=== PATIENT | male | born 1985 | race Caucasian/White ===

== ENCOUNTER 2018-12-22 23:47 | Emergency (ER) | payer OTHER, SELFPAY ==
[2018-12-22 23:48] VITALS: BP 147/77; PULSE 98; RESP 18; TEMP 36.7; O2SAT 96; BMI 39.3
--- NOTE | 2018-12-23 00:11 | ED.DCSUM_ITS ---
History of Present Illness Chief Complaint: Head Injury Informant: Patient Narrative: Patient stated that he had to come in for company evaluation after he was working on a vela and a piece of metal swung and hit him in the left forehead. He was dazed for a second. He did not lose consciousness. He said no other symptoms afterward. He has a mild headache. Happened just prior to coming in. He denies any other symptoms. Current severity is mild. Is in normal. No nausea or vomiting. Past Medical History - Allergies and Home Meds Allergies/Adverse Reactions: Allergies No Known Allergies Allergy (Verified 12/22/18 23:51) Primary Care Physician: Care Physician,No Primary [Primary Care Provider] - Prior records reviewed: Yes Surgical History: noncontributory Lives: Spouse/ Significant Other Smoking Status: Never smoker Alcohol: None Drugs: None Review of Systems General: Denies: Chills, Fever, Sweats Eyes: Denies: Visual changes - bilaterally, Diplopia ENT: Denies: Rhinorrhea, Sore throat Cardiovascular: Denies: Chest pain, Palpitations Respiratory: Denies: Dyspnea, Cough, Dyspnea on exertion Gastrointestinal: Denies: Abdominal pain, Nausea, Vomiting, Diarrhea, Melena, Hematochezia Genitourinary: Denies: Dysuria, Hematuria, Frequency Musculoskeletal: Denies: Back pain, Extremity Pain Skin: Denies: Rash, Wounds Neurological: Reports: Headache. Denies: Weakness, Numbness Physical Exam Vital Signs/Narrative: Vital Signs Temp Pulse Resp BP Pulse Ox 12/22/18 23:48 98.0 F 98 18 147/77 H 96 General: Well nourished, Well developed, No Acute Distress Head: Normocephalic, Atraumatic Eyes: Perrl, EOMI ENT: Moist mucous membranes, No rhinorrhea Neck: Supple, Nontender Cardiovascular: Regular rate, Regular rhythm, No murmurs Respiratory: No distress, CTA bilaterally, Chest nontender Abdomen: Soft, Nontender, Nondistended, Normal bowel sounds Back: Nontender, Normal Inspection Extremities: Nontender, No edema Skin: Normal color, No rash Neurological: Alert, Oriented x3, Cranial nerves II-XII grossly intact, Normal Strength, Normal Sensation Psychological: Normal affect, Normal Mood Diagnostic/Tx/Re-eval - Medical Decision Making Patient resting comfortably. Stated he came in because of his company policy. I do not think he needs a CT of his head. His head exam is normal. No scalp contusion bony step-off or deformity. He will follow-up as an outpatient. Did not want anything for discomfort. I think he just has a slight head contusion ED Disposition - Plan for ED Patient: Disposition: [facility] Diagnosis: Contusion Instructions: ED Contusion Scalp Referrals: [facility] [GROUP OF PHYSICIANS] -
[2018-12-23 00:45] VITALS: BP 140/60; PULSE 78; RESP 18; O2SAT 96
== END 2018-12-23 00:46 | disposition home or self-care (01) ==
PROVIDERS: Emergency Provider Emergency Medicine
DX: S00.83XA Contusion of other part of head, initial encounter (principal); W22.8XXA Striking against or struck by other objects, initial encounter; Y93.89 Activity, other specified; Y92.9 Unspecified place or not applicable; Y99.0 Civilian activity done for income or pay
CPT/HCPCS: 99282

== ENCOUNTER 2019-09-24 23:12 | Emergency (ER) | payer OTHER, SELFPAY ==
[2019-09-24 23:13] VITALS: BP 141/97; PULSE 116; RESP 16; TEMP 36.1; O2SAT 98; BMI 39.7
--- NOTE | 2019-09-24 23:47 | RAD_ITS ---
STUDY: X-RAY - LEFT HAND REASON FOR EXAM: Male, 33 years old. HIT WITH HAMMER AT WORK -- C/O 2ND and amp; 3RD MCP JOINTS AND INDEX AND MIDDLE FINGERS OF LT HAND TECHNIQUE: 3 view(s) of the hand. COMPARISON: None. FINDINGS: Normal radiocarpal articulation. Normal distal radioulnar joint. Normal visualized carpal bones. Normal carpal articulations Normal carpometacarpal articulation of the thumb. Normal second through fifth carpometacarpal joints. Normal metacarpi. Normal metacarpophalangeal joint of the thumb. Normal interphalangeal joint of the thumb. Normal proximal and distal phalanges of the thumb. Normal metacarpophalangeal joints of the second through fifth fingers. Normal proximal and distal interphalangeal joints of the second through fifth fingers. Normal phalanges of the second through fifth fingers. The soft tissue structures are unremarkable. RAD/Hand Min 3 Views IMPRESSION: Normal x-ray examination of the hand. Electronically Signed: Magnolia Banuelos MD at 0:24 EST , Service support ,
--- NOTE | 2019-09-24 23:48 | ED.DCSUM_ITS ---
- ER Visit Summary Date of Service: 09/24/19 Chief Complaint: Left hand injury History of Present Illness: The patient is a 33 M who presents with a left hand injury that occurred tonight while at work. Patient states his coworker hit his hand with a hammer accidentally. Patient states the pain is over the proximal phalanx of the left index finger. Patient is right-hand dominant. Patient states the pain was sharp initially but now is aching. Patient states he initially had some paresthesias in his index and long fingers but states this has resolved. Patient states the pain is worse with complete flexion of the digits. Patient states the pain is also worse when he pushes on the area. Patient states nothing seems to help with the pain. Physical Examination: All signs are stable. Patient is afebrile. Patient is in no acute distress. Musculoskeletal exam reveals tenderness, edema, and mild erythema over the proximal phalanx of the left index finger. There is no bony crepitance or step-off. Range of motion was limited in all motions of the MP, PIP, and DIP joints of the left index finger secondary to pain. There is also some mild tenderness over the third distal metacarpal area. There is no edema or ecchymosis noted. There is no bony crepitance or step-off. Sensation was intact to light touch in all digits. Capillary refill was less than 2 seconds in all digits. Radial pulses are equal bilaterally. Test Results: X-rays of the left hand were obtained. There is no acute fracture. These were interpreted by the radiologist and myself. Emergency Department Course and Treatment: Patient was advised of his x-ray findings. Patient was instructed to ice and elevate the left hand. Patient was given restrictions for work. Patient was instructed to follow-up with his primary care physician or corporate care in 5 to 7 days. Patient understood and was agreeable with the plan. All questions were answered. Disposition: Discharge home Impression: 1. Acute contusion left hand This note was generated with [employer] dictation software. It may contain incorrect words, spelling, and punctuation that were not noted in review of the chart pr ior to signing ED Disposition - Plan for ED Patient: Disposition: Home or Assisted Living Diagnosis: Contusion of left hand Instructions: CONTUSION, Hand Referrals: Care Physician,No Primary [Primary Care Provider] - [facility] [GROUP OF PHYSICIANS] - 5-7 Days
[2019-09-25 00:43] VITALS: PULSE 88; RESP 18
== END 2019-09-25 00:43 | disposition home or self-care (01) ==
PROVIDERS: Emergency Provider Emergency Medicine
DX: S60.022A Contusion of left index finger without damage to nail, initial encounter (principal); W20.8XXA Other cause of strike by thrown, projected or falling object, initial encounter; Y93.89 Activity, other specified; Y92.89 Other specified places as the place of occurrence of the external cause; Y99.0 Civilian activity done for income or pay
CPT/HCPCS: 73130; 99282

== ENCOUNTER 2021-09-09 23:21 | Emergency (ER) | payer BC, SELFPAY ==
[2021-09-09 23:22] VITALS: BP 142/91; PULSE 104; RESP 16; TEMP 36.7; O2SAT 98; BMI 40.4
--- NOTE | 2021-09-10 00:04 | CT_ITS ---
EXAM: CT ABDOMEN AND PELVIS WITHOUT INTRAVENOUS CONTRAST : 1985 CLINICAL INDICATION: left flank pain TECHNIQUE: Helically acquired images were obtained of the abdomen and pelvis without intravenous contrast. This CT exam was performed using one or more of the following dose reduction techniques: automated exposure control, adjustment of the mA and/or kV according to patient size, and/or use of iterative reconstruction technique. This report was created using [employer] report generation technology. COMPARISON: None. FINDINGS: LOWER THORAX: Unremarkable. Lung bases are clear. No cardiomegaly. No significant pericardial effusion. ABDOMEN: LIVER: Hepatomegaly with fatty infiltration. GALLBLADDER AND BILE DUCTS: Unremarkable. No calcified gallstones. No gallbladder distention or wall edema. No intra- or extrahepatic biliary ductal dilation. PANCREAS: Unremarkable. No focal cystic mass. SPLEEN: Unremarkable. Normal size without focal cystic or solid mass. ADRENALS: Unremarkable. No nodules. KIDNEYS AND URETERS: No urinary stone or renal obstruction. Normal renal size and position. STOMACH AND BOWEL: Unremarkable. No stomach or bowel distention. No focal inflammatory change. PELVIS: APPENDIX: The appendix is normal. BLADDER: Unremarkable. REPRODUCTIVE: Unremarkable as visualized. No mass. ABDOMEN and PELVIS: INTRAPERITONEAL SPACE: Unremarkable. No ascites or other fluid collection. No free air. BONES/JOINTS: Unremarkable. No suspicious lytic or blastic abnormality. SOFT TISSUES: Unremarkable. No discrete abdominal or pelvic wall hernia. VASCULATURE: Multiple pelvic vein phleboliths. Abdominal aorta is non-dilated. LYMPH NODES: Unremarkable. No enlarged lymph nodes. CT/Abdomen/Pelvis without Cont IMPRESSION: No acute findings in the abdomen or pelvis. Hepatomegaly with fatty infiltration of the liver. Individualized dose optimization techniques were used for this CT. at 0103 Reported and signed by: Dale Drake MD Electronically Signed: Dale Drake MD at 1:02 EST ,
[2021-09-10 00:30] LABS: Absolute Lymphocyte Count 2.87 X10^3/uL (0.83-4.51); Absolute Neutrophil Count 5.1 X10^3/uL (2.0-7.7); Basophil# 0.05 X10^3/uL; Basophil% 0.6 % (0-1); Eosinophil# 0.25 X10^3/uL; Eosinophils% 2.9 % (0-5); Hematocrit 45.7 % (40-54); Hemoglobin 15.1 g/dL (13.0-16.5); Lymphocyte # 2.87 X10^3/ul (0.83-4.51); Lymphocyte % 32.8 % (19-41); Mean Corpuscular Hgb 26.7 pg (27.0-32.0); Mean Corpuscular Volume 80.9 fL (80-94); Mean Platelet Vol. 10.3 fl (6.2-12.0); Monocyte# 0.48 X10^3/uL; Monocyte% 5.5 % (0-10); NRBC Flagged by Analyzer 0 % (0-5); Neutrophil # 5.07 X10^3/uL (2.7-7.7); Platelet Count 270 K/mm3 (150-450); RBC Distribution Width CV 12.7 % (11.6-14.6); RBC Distribution Width SD 36.8 fl (35.1-43.9); Red Blood Count 5.65 M/mm3 (4.6-6.2); White Blood Count 8.7 K/mm3 (4.4-11.0)
[2021-09-10] MEDS: Ketorolac 30 MG/ML Syringe IV (00:31)
[2021-09-10] MEDS: 0.9% Normal Saline 1,000 ML 999 ML IV (00:31)
[2021-09-10 00:46] LABS: Anion Gap 7 (5-15); BUN 14 mg/dL (7-18); BUN/Creat Ratio 16.8 RATIO (10-20); Calcium,Total 9.3 mg/dL (8.5-10.1); Chloride 103 mmol/L (98-107); Creatinine, Serum 0.83 mg/dL (0.70-1.30); EST Glomerular Filtration Rate 112 mL/min (>60); Est Glom Filt Rate - Afr Amer 135 mL/min (>60); Estimated Creatinine Clearance 133.56 ml/min; Glucose 308 mg/dL (74-106); Potassium 3.9 mmol/L (3.5-5.1); Sodium Level 137 mmol/L (136-145)
[2021-09-10 01:12] LABS: Bacteria 0 SEEN /hpf (None Seen); Red Blood Cells-Urine 0 SEEN /hpf (0-5); Squamous Epithelial Cells - UA 0 SEEN /hpf (0-5); White Blood Cells 0 SEEN /hpf (0-5)
[2021-09-10 01:13] LABS: Color, Urine Yellow (Yellow); Glucose, Dipstick 1000 mg/dl (Normal); Ketone-Dipstick Negative (Negative); Leukocyte Esterase-Dipstick Negative /ul (Negative); Nitrite-Dipstick Negative (Negative); Occult Blood-Urine Negative /ul (Negative); Protein-Dipstick 30 mg/dl (Negative); Urine Bilirubin Dipstick Negative (Negative); Urine Clarity Clear (Clear); Urine Urobilinogen 4 mg/dl (Normal)
[2021-09-10 01:37] LABS: Mucous, Urine RARE /hpf (<or=2+)
--- NOTE | 2021-09-10 01:54 | EDS_ITS ---
HPI History of Present Illness Chief Complaint: Abd Pain Narrative Narrative: Patient is a 35-year-old male who states he has noticed some intermittent left-sided abdominal pain for the past 3 to 5 days. He denies any direct injury but states he lifts heavy objects at work daily and did slip and fall about 7 days ago. He states he landed on his right side however and his pain is on his left. He denies any fevers chills nausea vomiting diarrhea or dysuria. He denies any hematuria. He denies any back pain or loss of bowel or bladder control. He states he was at work this evening and pain was not improving and secondary to this he presents for evaluation [facility] Home Medications NK 12/22/18 [History Last Taken Unknown] Allergy/AdvReac Type Severity Reaction Status Date / Time No Known Allergies Allergy Verified 09/09/21 23:24 Surgical History H/O hernia repair Social History Smoking Status: Never smoker ROS ROS ED Constitutional Constitutional ED: Denies chills or fever(s) ENT ENT ED: Denies sore throat Cardiovascular Cardiovascular: Denies chest pain Respiratory/Chest Respiratory/Chest: Denies cough or dyspnea Gastrointestinal Gastrointestinal: Reports abdominal pain; Denies diarrhea, nausea or vomiting Genitourinary Genitourinary ED: Denies dysuria or hematuria Musculoskeletal Musculoskeletal: Denies back pain or myalgias Integumentary Denies rash Neurologic Neurologic: Denies headache(s) Hematologic/Lymphatic Hematologic/Lymphatic: Denies easy bleeding or easy bruising EXAM Physical Exam Const Vital Signs: 09/09/21 23:22 09/10/21 02:07 Temperature 98.1 F Temperature Source Temporal Pulse Rate 104 H 86 Respiratory Rate 16 16 Blood Pressure 142/91 H 135/80 H Blood Pressure Mean 108 Pulse Ox 98 99 Oxygen Delivery Method Room Air Positive well nourished, well developed and obese General Appearance ED: well developed Nutritional Appearance: obese HEENT Reports moist mucous membranes Eyes PERRL and EOMs intact bilaterally Neck supple Resp normal respiratory effort and clear to auscultation bilaterally Cardio regular rate and regular rhythm Rate: other Other Details: Radial pulses are plus 2 out of 4 bilaterally are equal and symmetric GI non-distended GI Narrative: Abdomen is obese soft and nondistended with normoactive bowel sounds. There is mild pain on palpation in the left lower quadrant/inguinal region without voluntary guarding or rigidity. No obvious abdominal wall defect to suggest hernia. No pulsatile mass Auscultation: normoactive bowel sounds Palpation: soft Narrative: Normal circumcised male without blood or discharge from urethral meatus. No testicular masses palpated no pain with palpation of the scrotum. No obvious hernia palpated. No secondary skin changes to suggest Karina's gangrene Back/Spine no CVA tenderness Extremity normal to inspection Neuro oriented x3 and CN's II-XII intact bilaterally Sensorium / Orientation: alert Motor Exam: strength 5/5 throughout Psych mental status grossly normal Skin no rashes or lesions noted MDM MDM MDM Narrative Medical decision making narrative: Patient presented to the ER with history and exam concerning for hernia versus possible kidney stone. I cannot palpate an obvious hernia however so I did elect to perform a noncontrast CT scan and basic blood work for possible stone. Patient's blood sugar is elevated but he has no signs of DKA or acute kidney injury. Urine also shows no blood or signs of infection and CT scan reveals no acute abdominal pathology. At this time patient is resting comfortably and has had resolution of his pain; his abdomen remains soft and nonsurgical. I cannot palpate an obvious hernia but as his CAT scan is normal and his urine has no blood I do feel that his recurrent pain is most likely from this but as he has no signs of incarceration there is no need for further work-up and he can be discharged home on an outpatient basis. He also was advised of his elevated blood sugar and urine glucose value indicating he is most likely diabetic and that he will need to follow-up with a family doctor to discuss fasting blood work as well as a hemoglobin A1c Lab Data Attestation: I reviewed the patient's lab results. Labs: Laboratory Results - last 24 hr 09/10/21 09/10/21 09/10/21 00:25 00:25 01:05 WBC 8.7 RBC 5.65 Hgb 15.1 Hct 45.7 MCV 80.9 MCH 26.7 L MCHC 33.0 RDW Std Deviation 36.8 RDW Coeff of Jay 12.7 Plt Count 270 MPV 10.3 Immature Gran % (Auto) 0.200 Neut % (Auto) 58.0 Lymph % (Auto) 32.8 [place] % (Auto) 5.5 Eos % (Auto) 2.9 Baso % (Auto) 0.6 Absolute Neuts (auto) 5.1 Absolute Lymphs (auto) 2.87 Nucleated RBC % 0 Sodium 137 Potassium 3.9 Chloride 103 Carbon Dioxide 27.0 Anion Gap 7 BUN 14 Creatinine 0.83 Estim Creat Clear Calc 133.56 Est GFR (MDRD) Af Amer 135 Est GFR (MDRD) Non-Af 112 BUN/Creatinine Ratio 16.8 Glucose 308 H Calcium 9.3 Urine Color Yellow Urine Clarity Clear Urine pH 5.0 Ur Specific Ulmer 1.020 Urine Protein 30 H Urine Glucose (UA) 1000 H Urine Ketones Negative Urine Occult Blood Negative Urine Nitrite Negative Urine Bilirubin Negative Urine Urobilinogen 4 H Ur Leukocyte Esterase Negative Urine RBC 0 SEEN Urine WBC 0 SEEN Ur Squamous Epith Cells 0 SEEN Urine Bacteria 0 SEEN Urine Mucus RARE Radiography Diagnostic Testing: Clinical Impression(s) from Imaging Studies Abdomen/Pelvis CT 09/10/21 00:04 IMPRESSION: No acute findings in the abdomen or pelvis. Hepatomegaly with fatty infiltration of the liver. Individualized dose optimization techniques were used for this CT. at 0103 Reported and signed by: Dale Drake MD Electronically Signed: Dale Drake MD at 1:02 EST , Discharge Plan Triage Chief Complaint: Abd Pain ED Provider: Haile Renee Dx/Rx/DC Orders Clinical Impression: Abdominal hernia, Hyperglycemia Instructions: What Is a Hernia?, ED Hernia (Adult) Prescriptions: No Action NK RF: 0 Stand Alone Forms: ED Work / School Excuse Primary Care Provider: Care Physician,No Primary Referrals: Edgard Gastelum MD [STAFF PHYSICIAN] - 3-5 Days Care Physician,No Primary [Primary Care Provider] - Activity Restrictions/Additional Instructions: Please follow-up with the family doctor provided in order to further evaluate you for diabetes and possible referral to a general surgeon based on your abdominal pain with concern for hernia Disposition Disposition: Home, Self Care Discharge Date/Time: 09/10/21 02:07
[2021-09-10 02:07] VITALS: BP 135/80; PULSE 86; RESP 16; O2SAT 99
== END 2021-09-10 02:07 | disposition home or self-care (01) ==
PROVIDERS: Emergency Provider Emergency Medicine; Visit Provider Emergency Medicine
DX: K46.9 Unspecified abdominal hernia without obstruction or gangrene (principal); R73.9 Hyperglycemia, unspecified
CPT/HCPCS: 74176; 80048; 81001; 85025; 96361; 96374; 99284; J7030

== ENCOUNTER 2025-03-13 12:14 | Inpatient (IN) | payer BC, SELFPAY ==
[2025-03-13 12:15] VITALS: BP 135/72; PULSE 91; RESP 14; TEMP 35.6; O2SAT 97; BMI 37.8
--- NOTE | 2025-03-13 12:29 | EKG12_ITS ---
Test Reason : CP Blood Pressure : */* mmHG Vent. Rate : 89 BPM Atrial Rate : 89 BPM P-R Int : 138 ms QRS Dur : 72 ms QT Int : 362 ms P-R-T Axes : 34 11 111 degrees QTcB Int : 440 ms Normal sinus rhythm Abnormal QRS-T angle, consider primary T wave abnormality Abnormal ECG Confirmed by CATHY STOVER, UBALDO ([id number]), assignment desk editor MERCY PATEL ([id number]) on 03/14/2025 8:35:54 AM Referred By: RU/AR Confirmed By: UBALDO MORGAN MD
--- NOTE | 2025-03-13 12:29 | RAD_ITS ---
PROCEDURE: CHEST 1 VIEW (PORTABLE) N/A REASON FOR EXAM: CHEST PAIN TECHNIQUE: Frontal view of the chest. COMPARISON: None FINDINGS: Heart size and mediastinal configuration are within normal limits. There is no focal infiltrate or consolidation. There is no pneumothorax or effusion. There is no acute bony abnormality. There is no visible atherosclerosis. RAD/Chest 1 View (Portable) IMPRESSION: No acute process is identified in the chest. Reading Location: [facility]
--- NOTE | 2025-03-13 12:30 | ED.VIS.CHEST ---
HPI History of Present Illness Chief Complaint: Chest Pain Narrative Narrative: 39-year-old male who denies significant past medical history presents with intermittent chest pain that he has had for the last week. He states it can last for up to a few hours at a time. He denies any nausea or vomiting associated with this, no shortness of breath but states that he has been diaphoretic. However, he works as a arc welder apprentice, and attributed the high heat to that. This morning, at around 9 AM till around 11 AM he had chest pressure. He went to urgent care who advised him to report to the emergency department. As he was driving here from [place], he states his symptoms improved. He has also noticed that is usually when he is out, during the week, but not really experiencing chest pressure when he is at home on the weekends. He denies any leg swelling. He does state that his uncle may have had early coronary artery disease in his 30s. No exacerbating or alleviating factors otherwise. PFSH PFS Home Medications ?Medication ?Instructions ?Recorded ?Last Taken ?Type BLUE CHEW 03/13/25 Unknown History diphenhydramine HCl 25 mg capsule 25 mg PO DAILY PRN sleep 03/13/25 Unknown History (ZzzQuil) Allergy/AdvReac Type Severity Reaction Status Date / Time No Known Allergies Allergy Verified 03/13/25 12:15 Surgical History H/O hernia repair Social History Smoking Status: Never smoker ROS ROS ED ROS Narrative Review of systems positive for hours of chest pain intermittently over the last week. Started at 9:00 today and lasted for approximately 2 hours. No leg swelling. No nausea or vomiting, no fevers or chills, no cough, no shortness of breath. Positive sweating. Positive family history. EXAM Physical Exam Narrative Exam Narrative: Afebrile. Vital signs noted. Nontoxic-appearing. Cardiovascular examination reveals regular rate and rhythm. Lungs are clear to auscultation bilaterally. Abdomen is soft and nontender with normal active bowel sounds. Neurological examination nonfocal, nonlateralizing. No pedal edema. 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 Const Vital Signs: 03/13/25 12:15 03/13/25 12:46 03/13/25 12:46 Temperature 96.1 F L Temperature Source Temporal Pulse Rate 91 Respiratory Rate 14 Respiratory Effort Normal Non-Labored Blood Pressure 135/72 H Blood Pressure Mean 93 Pulse Ox 97 Oxygen Delivery Method Room Air Room Air 03/13/25 14:15 Temperature 98.2 F Temperature Source Pulse Rate 89 Respiratory Rate 20 H Respiratory Effort Blood Pressure 135/83 H Blood Pressure Mean 100 Pulse Ox 98 Oxygen Delivery Method MDM MDM MDM Narrative Medical decision making narrative: The differential diagnosis includes but not limited to ACS versus pulmonary embolism versus pneumonia versus pneumothorax. History and physical does not support aortic dissection, he is not having any back pain. Regarding the psoriatic patches on his legs, he states that he does not see a primary care provider and they do not really bother him and that they have been present for years. He was advised to follow-up with her primary care provider regarding this. For his chest pain, comprehensive workup was pursued. EKG was obtained and interpreted by myself independently as normal sinus rhythm at 89 bpm without ectopy or acute ST changes. No STEMI. I will obtain a D-dimer to help rule out pulmonary embolism. Chest x-ray interpreted by myself independently shows no evidence of pneumonia or pneumothorax. I reviewed the radiology report which confirms my independent interpretation. I reviewed his laboratory work and he has a normal white count of 7.8 with hemoglobin normal at 14.0, hematocrit 41.4, platelet count 264. BMP is grossly unremarkable except for glucose of 199 with a normal anion gap of 12. BUN normal at 14 with creatinine 0.72. Initially, his D-dimer returned and is elevated just above normal at 0.50. I ordered CTA with results pending. His initial high-sensitivity troponin returned at 76. I discussed the patient with Dr. Rico who agrees with heparin drip and admission to the hospitalist. He will be started on a heparin drip, and a PTT ordered. He will be treated for pulmonary embolism should it be positive, but given his elevated troponin as well, I feel he needs to be admitted for NSTEMI. He was told of the risk of intracranial and GI tract/system bleeding and spontaneous hemorrhage as well as increased bleeding with any wounds, and acknowledges an understanding. Risks and benefits explained as well. I reviewed the radiology report of the CTA of the chest and there is no evidence of pulmonary embolism. I then discussed the patient with Dr. Markell Almanzar for admission to the PCU. Patient is in stable condition. History & Record Review Discussion w/independent historian: Patient Additional record(s) reviewed:: Prior ED visit (Noncontributory to current chief complaint of chest pressure and pain) Lab Data Attestation: I reviewed the patient's lab results. Labs: Laboratory Results - last 24 hr 03/13/25 12:45 WBC 7.8 RBC 5.00 Hgb 14.0 Hct 41.4 MCV 82.8 MCH 28.0 MCHC 33.8 RDW Std Deviation 38.9 RDW Coeff of Jay 13.0 Plt Count 264 MPV 10.2 Immature Gran % (Auto) 0.300 Neut % (Auto) 66.6 Lymph % (Auto) 25.3 [place] % (Auto) 5.4 Eos % (Auto) 1.8 Baso % (Auto) 0.6 Absolute Neuts (auto) 5.2 Absolute Lymphs (auto) 1.97 Nucleated RBC % 0 PT 13.0 INR 1.0 APTT 28.4 D-Dimer Quant (PE/DVT) 0.50 H Sodium 141 Potassium 3.8 Chloride 103 Carbon Dioxide 25.3 Anion Gap 12 BUN 14 Creatinine 0.72 Estim Creat Clear Calc 191.01 Est GFR (MDRD) Non-Af 120 BUN/Creatinine Ratio 19.5 Glucose 199 H Calcium 9.6 Troponin T High Sens 76 H* Radiography Chest X-Ray - ED: 1 View, Read by ED Physician, Read by Radiologist and No Acute Disease Diagnostic Testing: Clinical Impression(s) from Imaging Studies Chest X-Ray 03/13/25 12:29 IMPRESSION: No acute process is identified in the chest. Reading [facility] Chest CTA 03/13/25 13:20 IMPRESSION: NORMAL CHEST CTA. NO EVIDENCE OF ACUTE PULMONARY EMBOLISM. Reading Location: [id number] Management Discussion w/another healthcare provider: Hospitalist (Dr. Almanzar) and Chef French (Cardiology, Dr. Rico) Discharge Plan Triage Chief Complaint: Chest Pain ED Provider: Markell Brock Dx/Rx/DC Orders Clinical Impression: Chest pain, Non-ST elevation TN (NSTEMI), Sweating Prescriptions: No Action BLUE CHEW Rx Instructions: PT STATES HE HAS A SCRIPT FOR BLUE CHEW AND IT'S LIKE A VIAGRA GUMMY diphenhydramine HCl [ZzzQuil] 25 mg capsule 25 mg PO DAILY PRN (Reason: sleep) Primary Care Provider: Care Physician,No Primary Referrals: Care Physician,No Primary [Primary Care Provider] - Print Language: Guinean
[2025-03-13] MEDS: 0.9% Normal Saline (1000mL) 1,000 ML 250 ML IV (12:57)
[2025-03-13 13:08] LABS: Hematocrit 41.4 % (40-54); Hemoglobin 14.0 g/dL (13.0-16.5); Immature Granulocytes Count 0.020 X10^3/uL (0.0-0.0); Mean Corp Hgb Conc 33.8 g/dL (32-36); Mean Corpuscular Volume 82.8 fL (80-94); Mean Platelet Vol. 10.2 fl (6.2-12.0); NRBC Flagged by Analyzer 0 % (0-5); Platelet Count 264 K/mm3 (150-450); RBC Distribution Width CV 13.0 % (11.6-14.6); RBC Distribution Width SD 38.9 fl (35.1-43.9); Red Blood Count 5.00 M/mm3 (4.6-6.2); White Blood Count 7.8 K/mm3 (4.4-11.0)
[2025-03-13 13:12] LABS: D-Dimer Quantitative (DVT/PE) 0.50 FEU/ug/m (0.27-0.49)
--- NOTE | 2025-03-13 13:20 | CT_ITS ---
PROCEDURE: CTA CHEST W/WO CONTRAST 03/13/2025 REASON FOR EXAM: ELEVATED D-DIMER TECHNIQUE: CTA CHEST W/WO CONTRAST Multiplanar Sagittal and Coronal images were obtained. CONTRAST: Isovue 3 7 VOLUME: 100 mL One or more dose reduction techniques were used (e.g., Automated exposure control, adjustment of the mA and/or kV according to patient size, use of iterative reconstruction technique). RADIATION DOSE SUMMARY: CTDlvol: 17 mGy DLP: 583.78 mGycm COMPARISON: Prior chest radiograph done earlier in the day. FINDINGS: Hardware: None Lymph nodes: No significant lymph nodes are seen. Heart: Unremarkable. No coronary artery calcification. Thoracic Aorta: No thoracic aortic aneurysm or dissection. Pulmonary Vessels: No pulmonary embolism. Lungs and Airways: Unremarkable Pleura: No pleural effusion. Upper Abdomen: Unremarkable Bones: Unremarkable CT/CTA Chest W/WO Contrast IMPRESSION: NORMAL CHEST CTA. NO EVIDENCE OF ACUTE PULMONARY EMBOLISM. Reading Location: [id number]
[2025-03-13 13:34] LABS: Anion Gap 12 (5-15); BUN 14 mg/dL (4-19); BUN/Creat Ratio 19.5 RATIO (10-20); Calcium,Total 9.6 mg/dL (7.6-11.0); Carbon Dioxide 25.3 mmol/L (21.0-32.0); Chloride 103 mmol/L (98-108); Estimated Creatinine Clearance 191.01 ml/min (50-250); Glucose 199 mg/dL (70-99); Potassium 3.8 mmol/L (3.3-5.1); Troponin T High Sensitivity 76 ng/L (<=22)
[2025-03-13 14:15] VITALS: BP 135/83; PULSE 89; RESP 20; TEMP 36.8; O2SAT 98
[2025-03-13 14:15] LABS: Prothrombin Time (Protime)PT. 13.0 SECONDS (11.7-14.9)
[2025-03-13 14:16] LABS: Partial Thromboplast Time 28.4 Seconds (24.1-36.2)
[2025-03-13] MEDS: HEPARIN/D5w 25,000 UNITS 25,000 UNITS/250 ML IV.SOLN. 13.8 UNITS CONT INF (14:23)
[2025-03-13] MEDS: Heparin Injection (Vial) 5,000 UNIT/ML VIAL 4000 UNIT IV (14:35)
--- NOTE | 2025-03-13 14:38 | PCM.HP.STD ---
HPI - General General Date of Admission: 03/13/25 Date of Service: 03/13/25 Chief Complaint: Chest pain HPI Narrative MINDI SHARIF, is a 39 M who presented to [facility] ED on 03/13/2025 with chest pain. Patient lives at home with his and child. Has no significant past medical history. However, his maternal grandmother in her late 30s of heart attack and his uncle had heart disease in his 30s as well. 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 He initially developed chest discomfort last Wednesday but noted this was while he was working outside in the heat, so he did not think much of it. However, he developed worsening chest discomfort now over the past few days that has not improved as much on its own so he came in for further evaluation. In the ED he was mildly hypertensive to the 130 systolic but otherwise in normal sinus rhythm and stable on room air at rest. CBC and BMP were benign. EKG with normal sinus rhythm and no ST changes noted. However, initial troponin level 76. D-dimer was mildly elevated so CTA chest obtained that showed no PE and was otherwise normal. Case was discussed with cardiology who recommended initiating heparin drip for suspected NSTEMI. Hospitalist was then contacted for admission. I saw the patient at bedside in the ED, was present. Patient was very pleasant and was sitting back comfortably in bed, conversing normally, in no acute distress. He was somewhat anxious appearing due to the current situation. Noted that his chest pain did improve after the aspirin and initiation of heparin drip. Blood sugar was elevated at 199 on BMP and was previously elevated at 308 on a BMP in 2021. He denies history of diabetes but does note he has not had lab workup for this in many years. Denies any history of high cholesterol or hypertension that he knows of. Denies tobacco use. Very rare alcohol use. Minimal caffeine use. Denies any recent illnesses. Denies any leg swelling. No other acute concerns currently. Will be admitted for further management. PENDING SALE TO [facility] Home Medications ?Medication ?Instructions ?Recorded ?Last Taken ?Type BLUE CHEW 03/13/25 Unknown History diphenhydramine HCl 25 mg capsule 25 mg PO DAILY PRN sleep 03/13/25 Unknown History (Cristail) Allergy/AdvReac Type Severity Reaction Status Date / Time No Known Allergies Allergy Verified 03/13/25 12:15 Surgical History H/O hernia repair Social History Smoking Status: Never smoker ROS Constitutional Constitutional: Denies chills, fatigue, fever(s) or weakness Eyes Eyes: Denies change in vision Cardiovascular Cardiovascular: Reports chest pain; Denies dyspnea on exertion, edema, lightheadedness or palpitations Respiratory/Chest Respiratory/Chest: Denies cough, shortness of breath at rest, shortness of breath with exertion or wheezing Gastrointestinal Gastrointestinal: Denies abdominal pain, nausea or vomiting Musculoskeletal Musculoskeletal: Denies arthralgias or myalgias Neurologic Neurologic: Denies dizziness, focal weakness or headache(s) Vital Signs Vital Signs Vital Signs: 03/13/25 12:15 03/13/25 12:46 03/13/25 12:46 Temperature 96.1 F L Temperature Source Temporal Pulse Rate 91 Respiratory Rate 14 Respiratory Effort Normal Non-Labored Blood Pressure 135/72 H Blood Pressure Mean 93 Pulse Ox 97 Oxygen Delivery Method Room Air Room Air 03/13/25 14:15 Temperature 98.2 F Temperature Source Pulse Rate 89 Respiratory Rate 20 H Respiratory Effort Blood Pressure 135/83 H Blood Pressure Mean 100 Pulse Ox 98 Oxygen Delivery Method Weight Weight: 126.3 kg Body Mass Index (BMI) 37.8 Physical Exam Const alert, oriented x3 and no apparent distress Constitutional Narrative: Pleasant younger male, class II obesity, sitting back comfortably in bed, conversing normally, in no acute distress. General Appearance: cooperative and comfortable HEENT normocephalic, head/scalp atraumatic, hearing grossly normal bilaterally, nasal mucous membranes and turbinates normal and moist oral mucous membranes Eyes PERRL, EOMs intact bilaterally and conjunctivae normal Neck full ROM Chest inspection of chest normal Resp normal respiratory effort, normal air movement, no use of accessory muscles and clear to auscultation bilaterally Cardio regular rate, regular rhythm, no murmurs and peripheral pulses 2+ throughout GI normal to inspection, nondistended, normoactive bowel sounds, soft to palpation, non-tender and non-distended Back/Spine normal ROM Extremity normal to inspection, full ROM and no pedal edema Skin no rashes or lesions noted Psych mental status grossly normal Results Lab / Micro Data 03/13/25 12:45 03/13/25 12:45 Labs: Laboratory Results - last 24 hr 03/13/25 12:45: WBC 7.8, RBC 5.00, Hgb 14.0, Hct 41.4, MCV 82.8, MCH 28.0, MCHC 33.8, RDW Std Deviation 38.9, RDW Coeff of Jay 13.0, Plt Count 264, MPV 10.2, Immature Gran % (Auto) 0.300, Neut % (Auto) 66.6, Lymph % (Auto) 25.3, [place] % (Auto) 5.4, Eos % (Auto) 1.8, Baso % (Auto) 0.6, Absolute Neuts (auto) 5.2, Absolute Lymphs (auto) 1.97, Nucleated RBC % 0, PT 13.0, INR 1.0, APTT 28.4, D-Dimer Quant (PE/DVT) 0.50 H, Sodium 141, Potassium 3.8, Chloride 103, Carbon Dioxide 25.3, Anion Gap 12, BUN 14, Creatinine 0.72, Estim Creat Clear Calc 191.01, Est GFR (MDRD) Non-Af 120, BUN/Creatinine Ratio 19.5, Glucose 199 H, Calcium 9.6, Troponin T High Sens 76 H* Imaging Radiology Impression Chest X-Ray 03/13/25 12:29 IMPRESSION: No acute process is identified in the chest. Reading Location: [facility] Chest CTA 03/13/25 13:20 IMPRESSION: NORMAL CHEST CTA. NO EVIDENCE OF ACUTE PULMONARY EMBOLISM. Reading Location: [id number] Assessment & Plan Assessment/Plan (1) Non-ST elevation [place] (NSTEMI): PLAN: Plan Patient is a 39-year-old male who presented to [facility] ED on 03/13/2025 with chest pain. 1. NSTEMI ? Admit under inpatient status to PCU. Cardiology consulted. Presented with intermittent chest pain of worsening intensity over the past several days. Strong family history of early coronary disease. Initial troponin 76. EKG with normal sinus rhythm, no ST changes. CTA chest with no PE and clear lung flower. Given high concern for NSTEMI type I, given aspirin 325 mg and initiated on heparin drip in the ED. Continue heparin drip and baby aspirin. Will initiate high intensity statin. Lipid panel, A1c and TSH ordered. N.p.o. at midnight with plan for left heart cath tomorrow. Echo ordered. 2. Elevated blood glucose ? Blood glucose 199 in the ED. Notably had glucose of 308 on a prior ED visit back in 2021, and also had 1000 glucose in his urine at that time. No prior A1c available. Suspect patient has type 2 diabetes and has had this for some time. A1c ordered. Will order glucose checks and sliding scale insulin with meals, adjust as needed. 3. Class II obesity ? BMI 37 on admit. Encouraged lifestyle modifications. 4. Psoriasis ? Patient has plaque psoriasis noted on bilateral anterior gutierrez areas. Notes these have been there for years and are not pruritic and do not cause him any issues. Has never used topical steroids or other treatments for them. No inpatient needs, recommend outpatient follow-up. DVT prophylaxis: Not indicated, on heparin drip CODE STATUS: Full code, verified Expected disposition: Home, TBD Total clinical time spent by myself addressing the patient's medical issues, reviewing all the data, and collaborating with patient's care team: 75 minutes. Charges/Coding Visit Charges Inpatient E&M: 99477 Init Hosp L3
--- NOTE | 2025-03-13 14:42 | ECHOCS_ITS ---
Reason For Study Reason For Study: Chest Pain Procedure This was a 2D Doppler, Color Flow transthoracic echocardiogram. The study was technically difficult. Contrast injection was performed. Echo done post heart cath (03/14/2025) with patient supine. Exam performed portable in patient room. Left Ventricle Normal LV size. The left ventricular ejection fraction is 45 %. Mild to moderate segmental systolic dysfunction (see wall motion). Mid-Lateral : Hypokinetic. Infero-Basal: Hypokinetic. The rest of the wall segments are normal. Right Ventricle Normal RV size. Normal systolic function. Atria Normal left atrium. Normal right atrium. Mitral Valve Normal mitral valve. Tricuspid Valve Normal tricuspid valve. Aortic Valve Normal aortic valve. Trisinus/trileaflet aortic valve. Pulmonic Valve Normal pulmonic valve. Great Vessels Normal aortic root. The pulmonary artery is normal size. Inferior vena cava collapse with respiration. Pericardium/Pleural No pericardial effusion. Medication Diluted definity 1.5ml given slow IV push to enhance endocardial definition. MMode/2D Measurements & Calculations LVIDd: 4.4 cm IVSd: 1.4 cm Ao root diam: 3.4 cm LVIDs: 3.5 cm LVPWd: 1.1 cm FS: 21.0 % LAV(MOD-bp): 29.9 ml LVAd ap4: 43.0 cm2 SV(MOD-sp4): 71.1 ml LAV(MOD-bp) Indexed: 12.2 ml/m2 LVLd ap4: 9.8 cm SI(MOD-sp4): 29.0 ml/m2 LAV(MOD-sp2): 21.6 ml EDV(MOD-sp4): 152.7 ml LAV(MOD-sp4): 39.4 ml EDV(sp4-el): 160.3 ml LVAs ap4: 29.6 cm2 LVLs ap4: 8.8 cm ESV(MOD-sp4): 81.6 ml ESV(sp4-el): 84.9 ml EF(MOD-sp4): 46.6 % EF(sp4-el): 47.0 % SV(sp4-el): 75.4 ml LA A4 area: 15.8 cm2 LA dimension(2D): 3.6 cm RA A4 area: 13.1 cm2 TAPSE: 2.3 cm Time Measurements MV dec time: 0.20 sec Doppler Measurements & Calculations MV E max gio: 66.9 cm/sec Lat Peak E' Gio: 13.0 cm/sec Med Peak E' Gio: 9.8 cm/sec MV A max gio: 52.8 cm/sec E/E' lat: 5.1 E/E' med: 6.8 MV E/A: 1.3 MV V2 max: 76.0 cm/sec MV P1/2t max gio: 78.0 cm/sec Ao V2 max: 92.8 cm/sec MV max P.3 mmHg MV P1/2t: 70.1 msec Ao max P.5 mmHg MV V2 mean: 44.2 cm/sec MV dec slope: 325.7 cm/sec2 Ao V2 mean: 64.6 cm/sec MV mean P.92 mmHg MVA(P1/2t): 3.1 cm2 Ao mean P.9 mmHg MV V2 VTI: 20.7 cm Ao V2 VTI: 18.5 cm AV (velocity ratio): 0.92 LV V1 max: 89.0 cm/sec PA V2 max: 95.1 cm/sec LV V1 max P.2 mmHg LV V1 mean P.6 mmHg LV V1 mean: 59.6 cm/sec LV V1 VTI: 17.0 cm ECHO/Echo Complete W/ Contrast Interpretation Summary Normal LV size. The left ventricular ejection fraction is 45 %. Mild to moderate segmental systolic dysfunction (see wall motion). The rest of the wall segments are normal. Ordering Physician: Benton Almanzar Performed By: Alexy Armendariz RCS
[2025-03-13 15:15] VITALS: BP 150/94; PULSE 89; RESP 20; TEMP 36.6; O2SAT 95; BMI 37.5
[2025-03-13 15:15] LABS: Troponin T High Sens 2 HR 86 ng/L (<=22)
--- NOTE | 2025-03-13 16:20 | PCM.CONS.C ---
Assessment & Plan Assessment/Plan (1) Non-ST elevation [place] (NSTEMI): PLAN: The patient presents with new onset chest discomfort with no EKG changes both with abnormal cardiac enzymes. The above is suggestive of coronary disease and my recommendation at this time would be to continue intravenous heparin Aspirin Beta-joel Obtain a lipid profile Schedule for cardiac catheterization in a.m. The risk benefits alternatives have been explained to him he understands and agrees to proceed. Depending on the findings further recommendations will be made. HPI Consult Data Date of Consult: 03/13/25 HPI Narrative HPI Narrative: MINDI SHARIF, is a 39 M who presents to the emergency room with complaints of chest discomfort. He says that over the last few weeks he has had exertional chest discomfort but no rest discomfort he also realized that he was mildly short of breath which was a change from before. He presented to the emergency room and his EKG did not demonstrate any significant abnormalities but cardiac enzymes were noted to be abnormal and he was admitted for further evaluation and management. He has not had any previous cardiac history. [facility] Medical History Non-smoker Seizures Home Medications ?Medication ?Instructions ?Recorded ?Last Taken ?Type BLUE CHEW 03/13/25 Unknown History diphenhydramine HCl 25 mg capsule 25 mg PO DAILY PRN sleep 03/13/25 Unknown History (ZzzQuil) Allergy/AdvReac Type Severity Reaction Status Date / Time No Known Allergies Allergy Verified 03/13/25 12:15 Surgical History H/O hernia repair Social History Smoking Status: Never smoker ROS Constitutional Constitutional: Denies fever(s) or weight loss Eyes Eyes: Reports systems reviewed and no addt'l complaints, except as documented ENT HEENT: Reports systems reviewed and no addt'l complaints, except as documented Cardiovascular Cardiovascular: Denies chest pain at rest, chest pain with activity, dyspnea at rest, dyspnea on exertion, edema, palpitations or paroxysmal nocturnal dyspnea Respiratory/Chest Respiratory/Chest: Denies dyspnea on exertion, productive cough, shortness of breath at rest or shortness of breath with exertion Gastrointestinal Gastrointestinal: Denies change in bowel habits, nausea, vomiting or weight changes Genitourinary Genitourinary: Denies difficulty urinating Musculoskeletal Musculoskeletal: Denies joint stiffness or muscle weakness Integumentary Integumentary: Denies lesions Neurologic Neurologic: Denies dizziness or syncope Psychiatric Psychiatric: Denies anxiety Endocrine Endocrinology: Denies excessive sweating or fatigue Hematologic/Lymphatic Hematologic/Lymphatic: Denies anemia Allergic/Immunologic Allergic/Immunologic: Denies seasonal rhinorrhea Risk Stratification Risk Stratification Applicable: Yes Age >/= 65: No >/= 3 CAD Risk Factors (HTN, HLD, DM, family hx of CAD, or current smoker): No Aspirin Use in the Past 7 Days: No Severe Angina (>/= episodes in 24 hours): No EKG ST Changes >/= 0.5mm: No Positive Cardiac Marker: Yes GEM Risk Stratification Score: 1 GEM % Risk: 5% Risk Objective Data Vital Signs: Vital Signs Temp Pulse Resp BP Pulse Ox O2 Del Method 97.8 F 89 20 H 150/94 H 95 Room Air 03/13/25 15:15 03/13/25 15:15 03/13/25 15:15 03/13/25 15:15 03/13/25 15:15 03/13/25 15:49 Oxygen Delivery Method Room Air Weight: 276 lb 14.409 oz Body Mass Index (BMI) 37.5 Intake & Output: Intake and Output for Last 24 Hours 03/11/25 03/12/25 03/13/25 23:59 23:59 23:59 Intake Total 637.5 / 637.5 Balance 637.5 / 637.5 Lab / Micro Data 03/13/25 12:45 03/13/25 12:45 Labs: Laboratory Results - last 24 hr 03/13/25 12:45: WBC 7.8, RBC 5.00, Hgb 14.0, Hct 41.4, MCV 82.8, MCH 28.0, MCHC 33.8, RDW Std Deviation 38.9, RDW Coeff of Jay 13.0, Plt Count 264, MPV 10.2, Immature Gran % (Auto) 0.300, Neut % (Auto) 66.6, Lymph % (Auto) 25.3, [place] % (Auto) 5.4, Eos % (Auto) 1.8, Baso % (Auto) 0.6, Absolute Neuts (auto) 5.2, Absolute Lymphs (auto) 1.97, Nucleated RBC % 0, PT 13.0, INR 1.0, APTT 28.4, D-Dimer Quant (PE/DVT) 0.50 H, Sodium 141, Potassium 3.8, Chloride 103, Carbon Dioxide 25.3, Anion Gap 12, BUN 14, Creatinine 0.72, Estim Creat Clear Calc 191.01, Est GFR (MDRD) Non-Af 120, BUN/Creatinine Ratio 19.5, Glucose 199 H, Calcium 9.6, Troponin T High Sens 76 H* 03/13/25 14:40: Troponin T Hi Sens 2 Hr 86 H* Cardiology Labs/Tests 03/13/25 12:45: WBC 7.8, RBC 5.00, Hgb 14.0, Hct 41.4, MCV 82.8, MCH 28.0, MCHC 33.8, Plt Count 264, MPV 10.2, Immature Gran % (Auto) 0.300, Neut % (Auto) 66.6, Lymph % (Auto) 25.3, [place] % (Auto) 5.4, Eos % (Auto) 1.8, Baso % (Auto) 0.6, Absolute Neuts (auto) 5.2, Nucleated RBC % 0, PT 13.0, INR 1.0, APTT 28.4, D-Dimer Quant (PE/DVT) 0.50 H, Sodium 141, Potassium 3.8, Chloride 103, Carbon Dioxide 25.3, Anion Gap 12, BUN 14, Creatinine 0.72, Est GFR (MDRD) Non-Af 120, BUN/Creatinine Ratio 19.5, Glucose 199 H, Calcium 9.6 Rhythm: EKG: ECHO: Stress Test: Cardiac Cath: PCI: CT Surgery: Holter monitor: EPS: PPM: CXR: Chest CT Scan: Radiography Diagnostic Testing: Radiology Impression Chest X-Ray 03/13/25 12:29 IMPRESSION: No acute process is identified in the chest. Reading Location: [id number] Chest CTA 03/13/25 13:20 IMPRESSION: NORMAL CHEST CTA. NO EVIDENCE OF ACUTE PULMONARY EMBOLISM. Reading Location: [id number]
[2025-03-13 17:12] LABS: Troponin T High Sens 4 HR 100 ng/L (<=22)
[2025-03-13 17:20] LABS: AST(SGOT) 27 U/L (<=37); Alanine Aminotransfer ALT/SGPT 25 U/L (<=46); Albumin, Serum 3.9 g/dL (3.5-5.0); Alkaline Phosphatase 75 U/L (40-129); Bilirubin, Direct 0.23 mg/dL (0.00-0.30); Globulin 3.1 g/dL (2.2-4.2)
[2025-03-13 19:00] VITALS: PULSE 96
[2025-03-13 19:45] VITALS: O2SAT 98
[2025-03-13 20:25] VITALS: BP 165/100; PULSE 94; RESP 16; TEMP 37.1; O2SAT 99
[2025-03-13 21:02] LABS: Partial Thromboplast Time 49.8 Seconds (24.1-36.2)
--- OUTSIDE RECORDS SUMMARY | 2025-03-13 22:39 | XMS RPT_ITS | CCD ---
Author Organization [facility]formerly [facility], [facility] Partnership [facility] Care Team Providers Care Residential Real Estate Sales Manager Name Role Phone Unavailable Primary Care Provider IMANI Taylor Referring Unavailable Unavailable Primary Care Provider [facility] Care Physician, No Primary Primary Care Provider Unavailable Markell Brock MD Emergency Provider Dr. Benton Almanzar DO Admit Provider [phone] Dr. Benton Almanzar DO Attending Provider Medications Current Medications Medication Drug Class(es) Dates Sig (Normalized) Sig (Original) BLUE CHEW (1 source) Start: 03-13-2025 BLUE CHEW Active March 13, 2025 12:00am PT STATES HE HAS A SCRIPT FOR BLUE CHEW AND IT'S LIKE A VIAGRA GUMMY diphenhydrAMINE hydrochloride 25 mg oral capsule (1 source) Histamine-1 Receptor Antagonist Start: 03-13-2025 take 1 capsule by mouth once daily as needed for sleep Diphenhydramine Hcl (Zzzquil) 25 mg capsule Active 25 mg PO DAILY as needed for sleep March 13, 2025 12:00am predniSONE 10 mg oral tablet (1 source) Start: 10-05-2022 End: 10-14-2022 predniSONE (DELTASONE) 10 mg tablet Indications: Chronic toe pain, right foot Take 4 tabs daily for 3 days, then 2 tabs daily for 3 days, then 1 tab daily for 3 days with food. 21 tablet 0 10/05/2022 10/14/2022 Active Comment on above: Take 4 tabs daily fo r 3 days, then 2 tabs daily for 3 days, then 1 tab daily for 3 days with food. triamcinolone acetonide 1 mg/ml topical cream (4 sources) Corticosteroid Start: 10-28-2017 triamcinolone acetonide (KENALOG) 0.1 % cream Apply 1 application to affected area three times daily. Apply sparingly to area for rash/itching. 85.2 Tube 1 10/28/2017 Active Comment on above: Apply 1 application to affected area three times daily. Apply sparingly to area for rash/itching. Problems Active Problems Problem Classification Problem Date Documented Da te Episodic/Chronic Abdominal hernia (1 source) Hernia of abdominal cavity; Translations: [Unspecified abdominal hernia without obstruction or gangrene] 09-18-2021 Episodic Acute myocardial infarction (2 sources) Myocardial infarction; Translations: [Non-ST elevation (NSTEMI) myocardial infarction] 03-13-2025 Chronic Diabetes mellitus without complication (1 source) Hyperglycemia; Translations: [Hyperglycemia, unspecified] 09-18-2021 Episodic Nonspecific chest pain (3 sources) Chest pain; Translations: [Chest pain, unspecified] 03-13-2025 Episodic Other connective tissue disease (1 source) Chronic pain of right foot; Translations: [Pain in right toe(s)] Episodic Other injuries and conditions due to external causes (1 source) Contusion; Translations: [Other injury of unspecified body region, initial encounter] 12-24-2018 Episodic Other skin disorders (2 sources) Sweating 03-13-2025 Episodic Superficial injury; contusion (1 source) Contusion of left hand; Translations: [Contusion of left hand, initial encounter] 09-26-2019 Episodic Past or Other Problems Problem Classification Problem Date Documented Da te Episodic/Chronic Skin and subcutaneous tissue infections (4 sources) Pilonidal cyst with abscess; Translations: [Pilonidal cyst with abscess] Onset: 03-10-2012 03-10-2012 Episodic Results Test Name Value Interpretation Reference Range Facility Absolute lymphocyte countOrd ered By: Markell Brock on 03-13-2025 Lymphocytes Auto (Unsp spec) [#/Vol] 1.97 10*3/uL 0.83-4.51 [facility] Absolute neutrophil countOrd ered By: Markell Brock on 03-13-2025 Neutrophils (Bld) [#/Vol] 5.2 10*3/uL 2.0-7.7 [facility] Activated partial thrombopla stin time (aPTT) in platelet poor plasma by coagulation aOrdered By: Markell Brock on 03-13-2025 aPTT Coag (PPP) [Time] 28.4 s 24.1-36.2 [facility] Anion gap in Serum or Plasma Ordered By: Markell Brock on 03-13-2025 Anion gap [Moles/Vol] 12 mmol/L 5-15 [facility] Automated lymphocyte count a s percentage of total leukocytesOrdered By: Markell Brock on 03-13-2025 Lymphocytes/100 WBC Auto (Unsp spec) 25.3 % 19-41 [facility] BUN/creatinine ratioOrdered By: Markell Brock on 03-13-2025 Urea nitrogen/Creatinine [Mass ratio] 19.5 mg/mg 10-20 [facility] Basophil percentageOrdered B y: Markell Brock on 03-13-2025 Basophils/100 WBC (Bld) 0.6 % 0-1 [facility] Carbon dioxide, total [Moles /volume] in Central venous bloodOrdered By: Markell Brock on 03-13-2025 CO2 [Moles/Vol] 25.3 mmol/L 21.0-32.0 [facility] Chloride assayOrdered By: Judd Brock on 03-13-2025 Chloride [Moles/Vol] 103 mmol/L 98-108 [facility] Eosinophil percentageOrdered By: Markell Brock on 03-13-2025 Eosinophils/100 WBC (Bld) 1.8 % 0-5 [facility] Erythrocyte distribution wid th ratioOrdered By: Markell Brock on 03-13-2025 Erythrocyte distribution width (RBC) [Ratio] 13.0 % 11.6-14.6 [facility] Erythrocyte distribution wid th standard deviationOrdered By: Markell Brock on 03-13-2025 Erythrocyte distribution width (RBC) [Ratio] 38.9 fl 35.1-43.9 [facility] Glomerular filtration rate ( GFR) estimation/1.73 sq m using serum, plasma, or whole bOrdered By: Markell Brock on 03-13-2025 GFR/1.73 sq M.predicted among non-blacks MDRD (S/P/Bld) [Vol rate/Area] 120 mL/min/{1.73_m2} >60 [facility] Comment on above: mL/min/1.73m2 CKD-EP I Creatinine Equation (2020) Hematocrit Auto (Bld) [Volum e fraction]Ordered By: Markell Brock on 03-13-2025 Hematocrit (Bld) [Volume fraction] 41.4 % 40-54 [facility] Hemoglobin measurementOrdere d By: Marekll Brock on 03-13-2025 Hemoglobin (Bld) [Mass/Vol] 14.0 g/dL 13.0-16.5 [facility] Immature granulocytes/100 WB C Auto (Bld)Ordered By: Markell Brock on 03-13-2025 Immature granulocytes/100 WBC (Bld) 0.300 % 0.0-0.9 [facility] Comment on above: IG% - Immature Granu locytes (promyelocytes, myelocytes and metamyelocytes) > 1% indicates that a LEFT SHIFT is Present. International normalized rat io (INR) calculationOrdered By: Markell Brock on 03-13-2025 INR Coag (Bld) [Relative time] 1.0 {INR} [facility] MCV (mean corpuscular volume ) determinationOrdered By: Markell Brock on 03-13-2025 MCV (RBC) [Entitic vol] 82.8 fL 80-94 [facility] Mean corpuscular hemoglobin (MCH) determinationOrdered By: Markell Brock on 03-13-2025 MCH (RBC) [Entitic mass] 28.0 pg 27.0-32.0 [facility] Mean corpuscular hemoglobin concentration (MCHC) determinationOrdered By: Markell Brock on 03-13-2025 MCHC (RBC) [Mass/Vol] 33.8 g/dL 32-36 [facility] Mean platelet volume determi nationOrdered By: Markell Brock on 03-13-2025 Platelet mean volume (Bld) [Entitic vol] 10.2 fL 6.2-12.0 [facility] Monocyte percentageOrdered B y: Markell Brock on 03-13-2025 Monocytes/100 WBC (Bld) 5.4 % 0-10 [facility] Neutrophil percentageOrdered By: Markell Brock on 03-13-2025 Neutrophils/100 WBC (Bld) 66.6 % 47-70 [facility] Nucleated red blood cell per centageOrdered By: Markell Brock on 03-13-2025 Nucleated RBC/100 WBC (Bld) [Ratio] 0 % 0-5 [facility] Platelet countOrdered By: Judd Brock on 03-13-2025 Platelets (Bld) [#/Vol] 264 10*3/uL 150-450 [facility] Potassium measurement (mass/ volume)Ordered By: Markell Brock on 03-13-2025 Potassium (Unsp spec) [Mass/Vol] 3.8 mmol/L 3.3-5.1 [facility] Prothrombin timeOrdered By: Markell Brock on 03-13-2025 PT Coag (PPP) [Time] 13.0 s 11.7-14.9 [facility] RBC Auto (Bld) [#/Vol]Ordere d By: Markell Brock on 03-13-2025 RBC (Bld) [#/Vol] 5.00 10*6/uL 4.6-6.2 [facility] Serum creatinine measurement (mass/volume)Ordered By: Markell Brock on 03-13-2025 Creatinine [Mass/Vol] 0.72 mg/dL 0.70-1.20 [facility] Serum glucose measurement (m ass/volume)Ordered By: Markell Brock on 03-13-2025 Glucose [Mass/Vol] 199 mg/dL High 70-99 [facility] Serum or plasma calcium wanda urement (mass/volume)Ordered By: Markell Brock on 03-13-2025 Calcium [Mass/Vol] 9.6 mg/dL 7.6-11.0 [facility] Serum or plasma urea nitroge n measurement (mass/volume)Ordered By: Markell Brock on 03-13-2025 Urea nitrogen [Mass/Vol] 14 mg/dL 4-19 [facility] Sodium levelOrdered By: Markell Brock on 03-13-2025 Sodium [Moles/Vol] 141 mmol/L 133-145 [facility] Troponin T.cardiac [Mass/vol ume] in Serum or Plasma by High sensitivity methodOrdered By: Markell Brock on 03-13-2025 Troponin T.cardiac High sensitivity method [Mass/Vol] 76 ng/L High <22 [facility] Comment on above: Critical Result(s) C alled at 1334: by: FRANCESCA FERRO TO MARKUS. Results read back by same. White blood cell (WBC) count Ordered By: Markell Brock on 03-13-2025 WBC (Bld) [#/Vol] 7.8 10*3/uL 4.4-11.0 [facility] 06-25-2023 [facility] Office Visit (UCWSTR) ---- MINDI SHARIF ([id number]) 1985 M Date Time Provider Department 06/25/23 10:45 AM MIRANDA CONNOR RUST During your visit today, we recorded the following information about you: Temperature Pulse Respiration Blood pressure 97.7 degrees 87/minute 16/minute 130/86 Weight 127.8 kg Miranda Connor APRN.MERCHANDISER RETAIL REPRESENTATIVE 06/25/2023 11:01 AM Signed Subjective She came in with complaints of feeling like there is a cell phone vibrating in the back of his left ankle heel area. Patient says it started yesterday. Patient says its been pretty consistent since then. Patient denies any injuries difficulty with range of motion or pain. Patient says this is never happened before. The history is provided by the patient. No translator interpreter was used. Review of Systems Constitutional: Negative. Skin: Negative. Objective Physical Exam Constitutional: Appearance: Normal appearance. Pulmonary: Effort: Pulmonary effort is normal. Musculoskeletal: Feet: Feet: Comments: Patient says he feels a vibrating in the area marked above. Not tender to palpate. Range of motion within normal limits. Neurological: Mental Status: He is alert. History reviewed. No pertinent past medical history. PAST SURGICAL HISTORY Procedure Laterality Date EXCISION PILONIDAL CYST/SINUS EXTENSIVE 03/22/12 tracking, dumbell - excised with skin bridge, closed HERNIA REPAIR HX 87 ALLERGIES Patient has no known allergies. MEDICATIONS cyclobenzaprine (FLEXERIL) 10 mg tablet Take 1 tablet by mouth two times a day as needed for muscle spasm for up to 7 days. triamcinolone acetonide (KENALOG) 0.1 % cream Apply 1 application to affected area three times daily. Apply sparingly to area for rash/itching. (Patient not taking: Reported on 10/05/2022) FAMILY HISTORY Problem Relation Age of Onset Diabetes Maternal Grandfather Diabetes Paternal Grandmother Heart Maternal Grandmother Social History Tobacco Use Smoking status: Never Smokeless tobacco: Never Substance Use Topics Alcohol use: Yes Comment: once or twice a month Drug use: No ASSESSMENT/PLAN: 1. Discomfort - ICD9: V49.89, ICD10: Z78.9 (primary diagnosis) - CONSULT TO PODIATRY 2. Fasciculation - ICD9: 781.0, ICD10: R25.3 - CYCLOBENZAPRINE 10 MG TABLET Patient was educated about proper use of medication and supportive therapies. Patient was educated to give it a week or so and follow-up with podiatry if symptoms persist. Was okay with this care plan Miranda Connor APRN.MERCHANDISER RETAIL REPRESENTATIVE Referring Provider: SELF [200] Allergies As of Date: 06/25/2023 (No Known Allergies) Date Reviewed: 06/25/2023 Reviewed by: Carol Ann Fernández LPN - Fully Assessed Reason for Visit: left lower leg pain [Other] Cmt: Near ankle-feels vibration x 1 day Primary Visit Diagnosis:Discomfor t [Z78.9] Other Visit Diagnosis:Fascicula tion [R25.3] Order(s):CONSULT TO PODIATRY [9034] Order #: [id number]: 1 FUTURE cyclobenzaprine (FLEXERIL) 10 mg tabletTake 1 tablet by mouth two times a day as needed for muscle spasm for up to 7 days.Disp: 14 tabletRfl: 0 Prescriptions as of 06/25/2023 - cyclobenzaprine (FLEXERIL) 10 mg tablet Take 1 tablet by mouth two times a day as needed for muscle spasm for up to 7 days. - triamcinolone acetonide (KENALOG) 0.1 % cream Apply 1 application to affected area three times daily. Apply sparingly to area for rash/itching. Meds Comments as of 05/13/2012: no Rx or routine otc supplements May 13, 2012 Problem List As Of Date 06/25/2023 Noted Resolved Pilonidal cyst with abscess [L05.01] 03/10/2012 Prescriptions ordered this encounter Disp Refills Start End CYCLOBENZAPRINE 10 MG TABLET 14 t* 0 06/25/2023 07/02/2023 Route: ORAL Sig: Take 1 tablet by mouth two times a day as needed for muscle spasm for up to 7 days. Encounter Status:Closed by MIRANDA CONNOR on 06/25/23 [facility] 10-05-2022 [facility] Office Visit (UCWSTR) ---- MINDI SHARIF ([id number]) 1985 M Date Time Provider Department 10/05/22 9:30 AM IMANI NASH RUST During your visit today, we recorded the following information about you: Temperature Pulse Respiration Blood pressure 97.2 degrees 116/minute 16/minute 134/78 Weight 126.1 kg Imani Nash APRN.MERCHANDISER RETAIL REPRESENTATIVE 10/05/2022 10:09 AM Signed Subjective HPI HPI Mindi Merchant Kole is a 36 year old male who presents today for CC of right great toe pain. This started months ago. Has tried otc medication for relief. Symptoms are worsened by walking. Denies injury but works on feet all day. Denies numbness/tingling. .Patient presents with: Pain (foot): right on side of foot by big toe x months, increased x 2 days No past medical history on file. PAST SURGICAL HISTORY Procedure Laterality Date EXCISION PILONIDAL CYST/SINUS EXTENSIVE 03/22/12 tracking, dumbell - excised with skin bridge, closed HERNIA REPAIR HX 88 ALLERGIES Patient has no known allergies. MEDICATIONS triamcinolone acetonide (KENALOG) 0.1 % cream Apply 1 application to affected area three times daily. Apply sparingly to area for rash/itching. (Patient not taking: Reported on 10/05/2022) FAMILY HISTORY Problem Relation Age of Onset Diabetes Maternal Grandfather Diabetes Paternal Grandmother Heart Maternal Grandmother Social History Tobacco Use Smoking status: Never Smokeless tobacco: Never Substance Use Topics Alcohol use: Yes Comment: once or twice a month Drug use: No ROS Objective Blood pressure 134/78, pulse 116, temperature 36.2 ?C (97.2 ?F), resp. rate 16, weight 126.1 kg (278 lb), SpO2 98 %. Physical Exam Constitutional: General: He is not in acute distress. Appearance: He is not toxic-appearing or diaphoretic. HENT: Head: Normocephalic and atraumatic. Pulmonary: Effort: Pulmonary effort is normal. No accessory muscle usage or respiratory distress. Musculoskeletal: Feet: Neurological: Mental Status: He is alert and oriented to person, place, and time. ASSESSMENT/PLAN: 1. Chronic toe pain, right foot - ICD9: 729.5, 338.29, ICD10: M79.674, G89.29 -no bony abnormality noted on xray Will schedule with podiatry d/t presence for months. - XR TOE AP/LAT/OBL RIGHT IMPRESSION: No acute osseous abnormality Dictated by : MAURO FLORENCE MD - CONSULT TO PODIATRY - PREDNISONE 10 MG TABLET Imani Nash APRN.MERCHANDISER RETAIL REPRESENTATIVE Allergies As of Date: 10/05/2022 (No Known Allergies) Date Reviewed: 10/05/2022 Reviewed by: Imani Nash APRN.MERCHANDISER RETAIL REPRESENTATIVE - Fully Assessed Reason for Visit: Pain (foot) [760] Cmt: right on side of foot by big toe x months, increased x 2 days Primary Visit Diagnosis:Chronic toe pain, right foot [M79.674, G89.29] Order(s):XR TOE AP/LAT/OBL RIGHT [7429112] Order #: [id number]. #:[id number] CONSULT TO PODIATRY [9034] Order #: [id number]: 1 FUTURE predniSONE (DELTASONE) 10 mg tabletTake 4 tabs daily for 3 days, then 2 tabs daily for 3 days, then 1 tab daily for 3 days with food.Disp: 21 tabletRfl: 0 Prescriptions as of 10/05/2022 - predniSONE (DELTASONE) 10 mg tablet Take 4 tabs daily for 3 days, then 2 tabs daily for 3 days, then 1 tab daily for 3 days with food. - triamcinolone acetonide (KENALOG) 0.1 % cream Apply 1 application to affected area three times daily. Apply sparingly to area for rash/itching. Meds Comments as of 05/13/2012: no Rx or routine otc supplements May 13, 2012 Problem List As Of Date 10/05/2022 Noted Resolved Pilonidal cyst with abscess [L05.01] 03/10/2012 Prescriptions ordered this encounter Disp Refills Start End PREDNISONE 10 MG TABLET 21 t* 0 10/05/2022 10/14/2022 Sig: Take 4 tabs daily for 3 days, then 2 tabs daily for 3 days, then 1 tab daily for 3 days with food. Letter Text Letter Text Encounter Status:Closed by IMANI NASH on 10/05/22 Normal [facility] XR TOE 3V AP/LAT/OBL RTon XR TOE 3V AP/LAT/OBL RT * * *Final Repor t* * * DATE OF EXAM: Oct 05 2022 9:35AM WOX [id number] - XR TOE 3V AP/LAT/OBL RT / PROCEDURE REASON: multiple diagnoses * * * * Physician Interpretation * * * * EXAMINATION: XR TOE 3V AP/LAT/OBL RT CLINICAL HISTORY: Right first toe pain Technique: XR TOE 3V AP/LAT/OBL RT -- RIGHT with 3 views on 3 images Comparison: None RESULT: No acute fracture or dislocation. Joint spaces are maintained. No periarticular erosions. IMPRESSION: No acute osseous abnormality Image Scientist: PSCB Transcribe Date/Time: Oct 05 2022 9:48A Dictated by : MAURO FLORENCE MD This examination was interpreted and the report reviewed and electronically signed by: MAURO FLORENCE MD on Oct 05 2022 9:51AM EST [id number] Normal [facility] XR TOE AP/LAT/OBL RIGHTon [facility] XR Toes - right 3 Viewson IMPRESSION: No acute osseous abnormality Image Scientist: PSCB Transcribe Date/Time: Oct 05 2022 9:48A Dictated by : MAURO FLORENCE MD This examination was interpreted and the report reviewed and electronically signed by: MAURO FLORENCE MD on Oct 05 2022 9:51AM EST DIVISION OF RADIOLOGY * * *Final Report* * * DATE OF EXAM: Oct 05 2022 9:35AM WOX [id number] - XR TOE 3V AP/LAT/OBL RT / PROCEDURE REASON: multiple diagnoses * * * * Physician Interpretation * * * * EXAMINATION: XR TOE 3V AP/LAT/OBL RT CLINICAL HISTORY: Right first toe pain Technique: XR TOE 3V AP/LAT/OBL RT -- RIGHT with 3 views on 3 images Comparison: None RESULT: No acute fracture or dislocation. Joint spaces are maintained. No periarticular erosions. DIVISION OF RADIOLOGY Provider, [facility] [place] - 10/05/2022 * * *Final Report* * * DATE OF EXAM: Oct 05 2022 9:35AM WOX 5269 - XR TOE 3V AP/LAT/OBL RT / PROCEDURE REASON: multiple diagnoses * * * * Physician Interpretation * * * * EXAMINATION: XR TOE 3V AP/LAT/OBL RT CLINICAL HISTORY: Right first toe pain Technique: XR TOE 3V AP/LAT/OBL RT -- RIGHT with 3 views on 3 images Comparison: None RESULT: No acute fracture or dislocation. Joint spaces are maintained. No periarticular erosions. IMPRESSION IMPRESSION: No acute osseous abnormality Image Scientist: RUT Transcribe Date/Time: Oct 05 2022 9:48A Dictated by : MAURO FLORENCE MD This examination was interpreted and the report reviewed and electronically signed by: MAURO FLORENCE MD on Oct 05 2022 9:51AM EST [facility] Radiology Study observation (narrative) [facility] XR Toes - right 3 ViewsOrder ed By: Cc Provider on 10-05-2022 [facility] BASIC SEMEN ANALYSISon 10-03 Collection time (Tam) [Date/time] 1020 Normal [facility] Comment on above: Order Comment: Speci men Type: SEMINAL FLUID SPECIMEN Ordering Facility: [facility] Address: [address] [place], [place] [id number] Result Comment: 1115 Performed By: #### 1 0579-1, BASA #### [facility] CLIA [id number] [address] [place] [address] Color (Tam) Kang Opalescent Normal [facility] Comment on above: Order Comment: Speci men Type: SEMINAL FLUID SPECIMEN Ordering Facility: [facility] Address: [address] [address] Performed By: #### 1 0579-1, BASA #### [facility] CLIA [id number] [address] [place] [id number] DATE OF ANALYSIS 10/03/21 Normal [facility] Comment on above: Order Comment: Speci men Type: SEMINAL FLUID SPECIMEN Ordering Facility: [facility] Address: [address] [address] Performed By: #### 1 0579-1, BASA #### [facility] CLIA [id number] [address] [place] [address] FORWARD PROGRESSION 3 = Good motility, unidirectional Normal [facility] Comment on above: Order Comment: Speci men Type: SEMINAL FLUID SPECIMEN Ordering Facility: [facility] Address: [address] [address] Performed By: #### 1 0579-1, BASA #### [facility] [place] [id number] [address] [place] [address] PARTNER INFORMATION Partner = Lisseth Sharif Normal [facility] Comment on above: Order Comment: Speci men Type: SEMINAL FLUID SPECIMEN Ordering Facility: [facility] Address: [address] [address] Performed By: #### 1 0579-1, BASA #### [facility] CLIA [id number] [address] [place] [id number] pH (Tam) 6.8 Low >=7.2 [facility] Comment on above: Order Comment: Speci men Type: SEMINAL FLUID SPECIMEN Ordering Facility: [facility] Address: [address] [address] Performed By: #### 1 0579-1, BASA #### [facility] CLIA [id number] [address] [place] [address] Round cells (Tam) [#/Vol] 3.70 M/mL High <1.00 [facility] Comment on above: Order Comment: Speci men Type: SEMINAL FLUID SPECIMEN Ordering Facility: [facility] Address: [address] [address] Performed By: #### 1 0579-1, BASA #### [facility] CLIA [id number] [address] [place] [address] SEMEN COMMENT 2 Routine Semen Analysis Normal [facility] Comment on above: Order Comment: Speci men Type: SEMINAL FLUID SPECIMEN Ordering Facility: [facility] Address: [address] [place] [address] Performed By: #### 1 0579-1, BASA #### [facility] [place] [id number] [facility] [place] [address] Sexual abstinence duration [Time] 3 Days Normal [facility] Comment on above: Order Comment: Speci men Type: SEMINAL FLUID SPECIMEN Ordering Facility: [facility] Address: [address] [address] Performed By: #### 1 0579-1, BASA #### [facility] [place] [id number] [facility] [place] [address] Specimen volume (Tam) 2.3 mL Normal >=1.5 [facility] Comment on above: Order Comment: Speci men Type: SEMINAL FLUID SPECIMEN Ordering Facility: [facility] Address: [address] [address] Performed By: #### 1 0579-1, BASA #### [facility] CLIA [id number] [address] [place] [address] Sper[place] (Tam) [#/Vol] 146.0 M/mL Normal >=15.0 [facility] Comment on above: Order Comment: Speci men Type: SEMINAL FLUID SPECIMEN Ordering Facility: [facility] Address: [address] [address] Result Comment: 335. 80 Performed By: #### 1 0579-1, BASA #### [facility] CLIA [id number] [address] [place] [address] [place] Motile/100 spermatozoa (Tam) 62 % Normal >=40 [facility] Comment on above: Order Comment: Speci men Type: SEMINAL FLUID SPECIMEN Ordering Facility: [facility] Address: [address] [address] Performed By: #### 1 0579-1, BASA #### [facility] CLIA [id number] [address] [place] [address] Sper[place] Normal/100 spermatozoa (Tam) 3 % Low >=4 [facility] Comment on above: Order Comment: Speci men Type: SEMINAL FLUID SPECIMEN Ordering Facility: [facility] Address: [address] [address] Performed By: #### 1 0579-1, BASA #### [facility] IA [id number] [address] [place] [address] TIME TO ANALYSIS 55 Minutes Normal 0-60 [facility] Comment on above: Order Comment: Speci men Type: SEMINAL FLUID SPECIMEN Ordering Facility: [facility] Address: [address] [address] Performed By: #### 1 0579-1, BASA #### [facility] IA [id number] [address] [place] [address] TOTAL MOTILE SPERM 208.20 M Normal [facility] Comment on above: Order Comment: Speci men Type: SEMINAL FLUID SPECIMEN Ordering Facility: [facility] Address: [address] [address] Performed By: #### 1 0579-1, BASA #### [facility] CLIA [id number] [address] [place] [address] Viscosity Ql (Tam) Normal Normal [facility] Comment on above: Order Comment: Speci men Type: SEMINAL FLUID SPECIMEN Ordering Facility: [facility] Address: [address] [address] Performed By: #### 1 0579-1, BASA #### [facility] CLIA [id number] [address] [place] [address] CNOVon 10-03-2021 CNOV Office Visit (ANDRBA) ---- MINDI SHARIF ([id number]) 1985 M Date Time Provider Department 10/03/21 11:15 AM ANDROLOGY DEPARTMENT OF SOCIOLOGY CHAIR HAWTHORNE JAYNE During your visit today, we recorded the following information about you: Swathi Bocanegra 10/03/2021 11:37 AM Signed Routine Semen Analysis Swathi Bocanegra Referring Provider: SELF [200] Allergies As of Date: 10/03/2021 (No Known Allergies) Date Reviewed: 10/28/2017 Reviewed by: Muna ([facility]) Podlogar - Fully Assessed Primary Visit Diagnosis:Fertility testing [Z31.41] Other Visit Diagnosis:Abnormal semen analysis [R86.9] Order(s):BASIC SEMEN ANALYSIS [SQBASA] Order #: [id number]. #:[id number] y: 1 Prescriptions as of 10/03/2021 - triamcinolone acetonide (KENALOG) 0.1 % cream Apply 1 application to affected area three times daily. Apply sparingly to area for rash/itching. Meds Comments as of 05/13/2012: no Rx or routine otc supplements May 13, 2012 Problem List As Of Date 10/03/2021 Noted Resolved Pilonidal cyst with abscess [L05.01] 03/10/2012 Encounter Status:Closed by SWATHI BOCANEGRA on 10/03/21 Normal [facility] WBC # Smnon 10-03-2021 WBC (Tam) [#/Vol] 0.0 M/mL Normal <1.0 [facility] Comment on above: Order Comment: Speci men Type: SEMINAL FLUID SPECIMEN Ordering Facility: [facility] Address: [address] [place] [address] Performed By: #### 1 0579-1, ANTONIO #### [facility] CLIA [id number] [address] [place] [address] Abdomen/Pelvis without Conto n 09-10-2021 Abdomen/Pelvis without Cont [facility] Services [address] [place] [address] Abdomen/Pelvis without Cont MR#: [id number] Acct: [id number] Name: MINDI SHARIF Rep #: [id number] : 1985 M 35 From: Dale Drake MD PCP: Care Physician,No Primary Status: REG ER Study: Abdomen/Pelvis without Cont Date of Exam: 08/17 02/04 Exam# [id number] Ordering Dr: Haile Renee DO EXAM: CT ABDOMEN AND PELVIS WITHOUT INTRAVENOUS CONTRAST : 1985 CLINICAL INDICATION: left flank pain TECHNIQUE: Helically acquired images were obtained of the abdomen and pelvis without intravenous contrast. This CT exam was performed using one or more of the following dose reduction techniques: automated exposure control, adjustment of the mA and/or kV according to patient size, and/or use of iterative reconstruction technique. This report was created using Octopart report generation technology. COMPARISON: None. FINDINGS: LOWER THORAX: Unremarkable. Lung bases are clear. No cardiomegaly. No significant pericardial effusion. ABDOMEN: LIVER: Hepatomegaly with fatty infiltration. GALLBLADDER AND BILE DUCTS: Unremarkable. No calcified gallstones. No gallbladder distention or wall edema. No intra- or extrahepatic biliary ductal dilation. PANCREAS: Unremarkable. No focal cystic mass. SPLEEN: Unremarkable. Normal size without focal cystic or solid mass. ADRENALS: Unremarkable. No nodules. KIDNEYS AND URETERS: No urinary stone or renal obstruction. Normal renal size and position. STOMACH AND BOWEL: Unremarkable. No stomach or bowel distention. No focal inflammatory change. PELVIS: APPENDIX: The appendix is normal. BLADDER: Unremarkable. REPRODUCTIVE: Unremarkable as visualized. No mass. ABDOMEN and PELVIS: INTRAPERITONEAL SPACE: Unremarkable. No ascites or other fluid collection. No free air. BONES/JOINTS: Unremarkable. No suspicious lytic or blastic abnormality. SOFT TISSUES: Unremarkable. No discrete abdominal or pelvic wall hernia. VASCULATURE: Multiple pelvic vein phleboliths. Abdominal aorta is non-dilated. LYMPH NODES: Unremarkable. No enlarged lymph nodes. CT/Abdomen/Pelvis without Cont IMPRESSION: No acute findings in the abdomen or pelvis. Hepatomegaly with fatty infiltration of the liver. Individualized dose optimization techniques were used for this CT. at 0103 Reported and signed by: Dale Drake MD Electronically Signed: Dale Drake MD at 1:02 EST , CC: Haile Renee DO; No Primary Care Physician Image Scientist: Signed Normal [facility] Basic Metabolic Profile (BMP )on 09-10-2021 BUN/CRE 16.8 RATIO Normal 10-20 [facility] Comment on above: Performed By: #### L 500.2500, L100.0100 #### [facility] [address] [place], [address] CA,Total 9.3 mg/dL Normal 8.5-10.1 [facility] Comment on above: Performed By: #### L 500.2500, L100.0100 #### [facility] [address] [place], [address] Chloride [Moles/Vol] 103 mmol/L Normal 98-107 [facility] Comment on above: Performed By: #### L 500.2500, L100.0100 #### [facility] [address] [place], [address] CO2 [Moles/Vol] 27.0 mmol/L Normal 21.0-32.0 [facility] Comment on above: Performed By: #### L 500.2500, L100.0100 #### [facility] [address] [place], [address] Creatinine [Mass/Vol] 0.83 mg/dL Normal 0.70-1.30 [facility] Comment on above: Result Comment: The validity of the calculated GFR GFRAA in patients over 70 years has not been determined. Clinical correlation is essential. Performed By: #### L 500.2500, L100.0100 #### [facility] [address] [place], [address] ECRCL 133.56 ml/min Normal [facility] Comment on above: Performed By: #### L 500.2500, L100.0100 #### [facility] [address] [place], [address] EST GFR - AA 135 mL/min Normal >60 [facility] Comment on above: Result Comment: Afri can [place] GFR Calc Performed By: #### L 500.2500, L100.0100 #### [facility] [address] [place], [address] GAP 7 Normal 5-15 [facility] Comment on above: Performed By: #### L 500.2500, L100.0100 #### [facility] [address] [place], [address] GFR/1.73 sq M.predicted among non-blacks MDRD (S/P/Bld) [Vol rate/Area] 112 mL/min/{1.73_m2} Normal >60 [facility] Comment on above: Result Comment: Non- GFR Calc Performed By: #### L 500.2500, L100.0100 #### [facility] [address] [place], [address] Glucose [Mass/Vol] 308 mg/dL High 74-106 [facility] Comment on above: Result Comment: Gluc ose result greater than or equal to 200 mg/dL suggests DIABETES MELLITUS per A.D.A. criteria. Performed By: #### L 500.2500, L100.0100 #### [facility] [address] [place], [address] Potassium [Moles/Vol] 3.9 mmol/L Normal 3.5-5.1 [facility] Comment on above: Performed By: #### L 500.2500, L100.0100 #### [facility] [address] [place], [address] Sodium [Moles/Vol] 137 mmol/L Normal 136-145 [facility] Comment on above: Performed By: #### L 500.2500, L100.0100 #### [facility] [address] [place], [address] Urea nitrogen [Mass/Vol] 14 mg/dL Normal 7-18 [facility] Comment on above: Performed By: #### L 500.2500, L100.0100 #### [facility] [address] [place], [address] CBC W/Diff, Automatedon -2 Absolute Lymph 2.87 X10 3/uL Normal 0.83-4.51 [facility] Comment on above: Performed By: #### L 500.2500, L100.0100 #### [facility] [address] [place], [address] Absolute Neut 5.1 X10 3/uL Normal 2.0-7.7 [facility] Comment on above: Performed By: #### L 500.2500, L100.0100 #### [facility] [address] [place], [address] Basophils/100 WBC (Bld) 0.6 % Normal 0-1 [facility] Comment on above: Performed By: #### L 500.2500, L100.0100 #### [facility] [address] [place], [address] Eosinophils/100 WBC (Bld) 2.9 % Normal 0-5 [facility] Comment on above: Performed By: #### L 500.2500, L100.0100 #### [facility] [address] [place], [address] Erythrocyte distribution width (RBC) [Ratio] 12.7 % Normal 11.6-14.6 [facility] Comment on above: Performed By: #### L 500.2500, L100.0100 #### [facility] [address] [place], [address] Hematocrit (Bld) [Volume fraction] 45.7 % Normal 40-54 [facility] Comment on above: Performed By: #### L 500.2500, L100.0100 #### [facility] [address] [place], [address] Hemoglobin (Bld) [Mass/Vol] 15.1 g/dL Normal 13.0-16.5 [facility] Comment on above: Performed By: #### L 500.2500, L100.0100 #### [facility] [address] [place], [address] IG% 0.200 Normal 0.0-0.9 [facility] Comment on above: Result Comment: IG% - Immature Granulocytes (promyelocytes, myelocytes and metamyelocytes) > 1% indicates that a LEFT SHIFT is Present. Performed By: #### L 500.2500, L100.0100 #### [facility] [address] [place], [address] Lymphocytes/100 WBC (Bld) 32.8 % Normal 19-41 [facility] Comment on above: Performed By: #### L 500.2500, L100.0100 #### [facility] [address] [place], [address] MCH (RBC) [Entitic mass] 26.7 pg Low 27.0-32.0 [facility] Comment on above: Performed By: #### L 500.2500, L100.0100 #### [facility] [address] [place], [address] MCHC (RBC) [Mass/Vol] 33.0 g/dL Normal 32-36 [facility] Comment on above: Performed By: #### L 500.2500, L100.0100 #### [facility] [address] [place], [address] MCV (RBC) [Entitic vol] 80.9 fL Normal 80-94 [facility] Comment on above: Performed By: #### L 500.2500, L100.0100 #### [facility] [address] [place], [address] Monocytes/100 WBC (Bld) 5.5 % Normal 0-10 [facility] Comment on above: Performed By: #### L 500.2500, L100.0100 #### [facility] [address] [place], [address] Neutrophils/100 WBC (Bld) 58.0 % Normal 47-70 [facility] Comment on above: Performed By: #### L 500.2500, L100.0100 #### [facility] [address] [place], [address] Nucleated RBC (Bld) [#/Vol] 0 10*3/uL Normal 0-5 [facility] Comment on above: Performed By: #### L 500.2500, L100.0100 #### [facility] [address] [place], [address] Platelet mean volume (Bld) [Entitic vol] 10.3 fL Normal 6.2-12.0 [facility] Comment on above: Performed By: #### L 500.2500, L100.0100 #### [facility] [address] [place], [address] Platelets (Bld) [#/Vol] 270 10*3/uL Normal 150-450 [place] [facility] Comment on above: Performed By: #### L 500.2500, L100.0100 #### [facility] [address] [place], [address] RBC (Bld) [#/Vol] 5.65 10*6/uL Normal 4.6-6.2 [facility] Comment on above: Performed By: #### L 500.2500, L100.0100 #### [facility] [address] [place], [address] RDW SD 36.8 fl Normal 35.1-43.9 [facility] Comment on above: Performed By: #### L 500.2500, L100.0100 #### [facility] [address] [place], [address] WBC (Bld) [#/Vol] 8.7 10*3/uL Normal 4.4-11.0 [facility] Comment on above: Performed By: #### L 500.2500, L100.0100 #### [facility] [address] [place], [address] Emergency Department Summary on 09-10-2021 Emergency Department Summary [facility] Medical Records Department [address] [place] [address] Emergency Department Summary 09/10/21 MR#: [id number] Acct: [id number] Name: MINDI SHARIF AARON Rep #: [id number] : 1985 35 From: Haile Renee DO PCP: Care Physician,No Primary Status:DEP ER Location: ED HPI History of Present Illness Chief Complaint: Abd Pain Narrative Narrative: Patient is a 35-year-old male who states he has noticed some intermittent left-sided abdominal pain for the past 3 to 5 days. He denies any direct injury but states he lifts heavy objects at work daily and did slip and fall about 7 days ago. He states he landed on his right side however and his pain is on his left. He denies any fevers chills nausea vomiting diarrhea or dysuria. He denies any hematuria. He denies any back pain or loss of bowel or bladder control. He states he was at work this evening and pain was not improving and secondary to this he presents for evaluation [facility] Home Medications NK 12/22/18 [History Last Taken Unknown] Allergy/AdvReac Type Severity Reaction Status Date / Time No Known Allergies Allergy Verified 09/09/21 23:24 Surgical History H/O hernia repair Social History Smoking Status: Never smoker ROS ROS ED Constitutional Constitutional ED: Denies chills or fever(s) ENT ENT ED: Denies sore throat Cardiovascular Cardiovascular: Denies chest pain Respiratory/Chest Respiratory/Chest: Denies cough or dyspnea Gastrointestinal Gastrointestinal: Reports abdominal pain; Denies diarrhea, nausea or vomiting Genitourinary Genitourinary ED: Denies dysuria or hematuria Musculoskeletal Musculoskeletal: Denies back pain or myalgias Integumentary Denies rash Neurologic Neurologic: Denies headache(s) Hematologic/Lymphat ic Hematologic/Lymphat ic: Denies easy bleeding or easy bruising EXAM Physical Exam Const Vital Signs: 09/09/21 23:22 09/10/21 02:07 Temperature 98.1 F Temperature Source Temporal Pulse Rate 104 H 86 Respiratory Rate 16 16 Blood Pressure 142/91 H 135/80 H Blood Pressure Mean 108 Pulse Ox 98 99 Oxygen Delivery Method Room Air Positive well nourished, well developed and obese General Appearance ED: well developed Nutritional Appearance: obese HEENT Reports moist mucous membranes Eyes PERRL and EOMs intact bilaterally Neck supple Resp normal respiratory effort and clear to auscultation bilaterally Cardio regular rate and regular rhythm Rate: other Other Details: Radial pulses are plus 2 out of 4 bilaterally are equal and symmetric GI non-distended GI Narrative: Abdomen is obese soft and nondistended with normoactive bowel sounds. There is mild pain on palpation in the left lower quadrant/inguinal region without voluntary guarding or rigidity. No obvious abdominal wall defect to suggest hernia. No pulsatile mass Auscultation: normoactive bowel sounds Palpation: soft Narrative: Normal circumcised male without blood or discharge from urethral meatus. No testicular masses palpated no pain with palpation of the scrotum. No obvious hernia palpated. No secondary skin changes to suggest Karina's gangrene Back/Spine no CVA tenderness Extremity normal to inspection Neuro oriented x3 and CN's II-XII intact bilaterally Sensorium / Orientation: alert Motor Exam: strength 5/5 throughout Psych mental status grossly normal Skin no rashes or lesions noted MDM MDM MDM Narrative Medical decision making narrative: Patient presented to the ER with history and exam concerning for hernia versus possible kidney stone. I cannot palpate an obvious hernia however so I did elect to perform a noncontrast CT scan and basic blood work for possible stone. Patient's blood sugar is elevated but he has no signs of DKA or acute kidney injury. Urine also shows no blood or signs of infection and CT scan reveals no acute abdominal pathology. At this time patient is resting comfortably and has had resolution of his pain; his abdomen remains soft and nonsurgical. I cannot palpate an obvious hernia but as his CAT scan is normal and his urine has no blood I do feel that his recurrent pain is most likely from this but as he has no signs of incarceration there is no need for further work-up and he can be discharged home on an outpatient basis. He also was advised of his elevated blood sugar and urine glucose value indicating he is most likely diabetic and that he will need to follow-up with a family doctor to discuss fasting blood work as well as a hemoglobin A1c Lab Data Attestation: I reviewed the patient's lab results. Labs: Laboratory Results - last 24 hr 09/10/21 09/10/21 09/10/21 00:25 00:25 01:05 WBC 8.7 RBC 5.65 Hgb 15.1 Hct (more content not included)... Normal [facility] Urinalysis, Completeon 09-10 Mucus Ql (Urine sed) RARE Normal [facility] Comment on above: Order Comment: CLEAN CATCH Performed By: #### L 400.0001 #### [facility] [address] [place], [place], [address] BACTERIA 0 SEEN Normal None Seen [facility] Comment on above: Order Comment: CLEAN CATCH Performed By: #### L 400.0001 #### [facility] [address] [place], [address] EPI,SQUAMOUS 0 SEEN Normal 0-5 [facility] Comment on above: Order Comment: CLEAN CATCH Performed By: #### L 400.0001 #### [facility] [address] [place], [place], [address] RBC 0 SEEN Normal 0-5 [facility] Comment on above: Order Comment: CLEAN CATCH Performed By: #### L 400.0001 #### [facility] [address] [place], [place], [address] WBC 0 SEEN Normal 0-5 [facility] Comment on above: Order Comment: CLEAN CATCH Performed By: #### L 400.0001 #### [facility] [address] [place], [place], [address] [facility] Telephone ([facility]) ---- MINDI SHARIF ([id number]) 1985 M Date Time Provider Department 06/10/21 CRUZ MALHOTRA [facility] During your visit today, we recorded the following information about you: Radha Sow 06/10/2021 10:11 AM Signed Patient and patient's would like to know the results fo the SA the patient had done recently. Odette Grijalva APRN.CNP 06/10/2021 10:46 AM Signed Component Latest Ref Rng AND Units 06/06/2021 Date Of Analysis 06/06/2021 Semen Volume >=1.5 mL 2.5 Semen pH >=7.2 6.8 (L) Color, Semen Yellow Semen Viscosity Normal Concentration >=15.0 M/mL 68.0 Total Count Sperm >=39.00 M 170.00 % Motile Sperm >=40 % 60 Total Motile Sperm M 102.00 Forward Progression 2 = Poor to moderate, erratic Sperm Diff, Parris >=4 % 1 (L) Undiff Rnd Cell W Rout Semen Anly <1.00 M/mL 0.80 Abstinence Time, Semen Days 3 Collection Time 1035 Receipt Time 1135 Semen Age 0 - 60 Minutes 65 (H) Semen Comment 1 Partner=Lisseth Sharif Semen Comment 2 Routine Semen Analysis ALEX Grijalva APRN.CNP June 10, 2021 10:45 AM Odette Grijalva APRN.CNP 06/12/2021 12:00 PM Signed Anahi Cristina MD You 1 hour ago (10:48 AM) The parameters are off just a bit. ?Would recommend a repeat sperm count in 3 to 6 months. ?Thanks Message text unable to reach, no voicemail set up Odette Grijalva APRN.CNP June 12, 2021 12:00 PM Kathy Kip [facility] 06/12/2021 12:11 PM Signed Patient is asking if his could be contacted with results, he is at work and is unable to hold. Please advise. Odette Grijalva APRN.CNP 06/12/2021 1:25 PM Signed Sent message to with results and next steps. Odette Grijalva APRN.CNP June 12, 2021 1:24 PM Odette Grijalva APRN.CNP 06/12/2021 1:25 PM Signed Addended by: ODETTE GRIJALVA on: 06/12/2021 01:25 PM Modules accepted: Orders Allergies As of Date: 06/10/2021 (No Known Allergies) Date Reviewed: 10/28/2017 Reviewed by: Muna ([facility]) Podlogar - Fully Assessed Reason for Visit: Results [95] Cmt: SA Primary Visit Diagnosis:Encounter to discuss test results [Z71.2] Other Visit Diagnosis:Abnormal semen analysis [R86.9] Order(s):BASIC SEMEN ANALYSIS [SQBASA] Order #: [id number]: 1 FUTURE Prescriptions as of 06/12/2021 - triamcinolone acetonide (KENALOG) 0.1 % cream Apply 1 application to affected area three times daily. Apply sparingly to area for rash/itching. Meds Comments as of 05/13/2012: no Rx or routine otc supplements May 13, 2012 Problem List As Of Date 06/10/2021 Noted Resolved Pilonidal cyst with abscess [L05.01] 03/10/2012 Encounter Status:Closed by ODETTE GRIJALVA on 06/10/21 [facility] BASIC SEMEN ANALYSISon 06-06 Collection time (Tam) [Date/time] 1035 [facility] Comment on above: Order Comment: Speci men Type: SEMINAL FLUID SPECIMEN Result Comment: 1135 Performed By: #### B ASA #### [facility] CLIA [id number] [address] [place] [address] Color (Tam) Yellow [facility] Comment on above: Order Comment: Speci men Type: SEMINAL FLUID SPECIMEN Performed By: #### B ASA #### [facility] CLIA [id number] [address] [place] [address] DATE OF ANALYSIS 06/06/2021 [facility] Comment on above: Order Comment: Speci men Type: SEMINAL FLUID SPECIMEN Performed By: #### B ASA #### [facility] CLIA [id number] [address] [place] [address] FORWARD PROGRESSION 2 = Poor to moderate, erratic [facility] Comment on above: Order Comment: Speci men Type: SEMINAL FLUID SPECIMEN Performed By: #### B ASA #### [facility] CLIA [id number] [address] [place] [address] PARTNER INFORMATION Partner=Lisseth Sharif [facility] Comment on above: Order Comment: Speci men Type: SEMINAL FLUID SPECIMEN Performed By: #### B ASA #### [facility] CLIA [id number] [address] [place] [address] pH (Tam) 6.8 Low >=7.2 [facility] Comment on above: Order Comment: Speci men Type: SEMINAL FLUID SPECIMEN Performed By: #### B ASA #### [facility] CLIA [id number] [address] [place] [address] Round cells (Tam) [#/Vol] 0.80 M/mL Normal <1.00 [facility] Comment on above: Order Comment: Speci men Type: SEMINAL FLUID SPECIMEN Performed By: #### B ASA #### [facility] CLIA [id number] [address] [place] [address] SEMEN COMMENT 2 Routine Semen Analysis Normal [facility] Comment on above: Order Comment: Speci men Type: SEMINAL FLUID SPECIMEN Performed By: #### B ASA #### [facility] CLIA [id number] [address] [place] [address] Sexual abstinence duration [Time] 3 Days Normal [facility] Comment on above: Order Comment: Speci men Type: SEMINAL FLUID SPECIMEN Performed By: #### B ASA #### [facility] CLIA [id number] [address] [place] [address] Specimen volume (Tam) 2.5 mL Normal >=1.5 [facility] Comment on above: Order Comment: Speci men Type: SEMINAL FLUID SPECIMEN Performed By: #### B ASA #### [facility] CLIA [id number] [address] [place] [address] Spermatozoa (Tam) [#/Vol] 68.0 M/mL Normal >=15.0 [facility] Comment on above: Order Comment: Speci men Type: SEMINAL FLUID SPECIMEN Result Comment: 170. 00 Performed By: #### B ASA #### [facility] CLIA [id number] [address] [place] [address] Spermatozoa Motile/100 spermatozoa (Tam) 60 % Normal >=40 [facility] Comment on above: Order Comment: Speci men Type: SEMINAL FLUID SPECIMEN Performed By: #### B ASA #### [facility] [facility] CLIA [id number] [address] [place] [address] Spermatozoa Normal/100 spermatozoa (Tam) 1 % Low >=4 [facility] Comment on above: Order Comment: Speci men Type: SEMINAL FLUID SPECIMEN Performed By: #### B ASA #### [facility] CLIA [id number] [address] [place] [address] TIME TO ANALYSIS 65 Minutes High 0-60 [facility] Comment on above: Order Comment: Speci men Type: SEMINAL FLUID SPECIMEN Performed By: #### B ASA #### [facility] CLIA [id number] [address] [place] [address] TOTAL MOTILE SPERM 102.00 M Normal [facility] Comment on above: Order Comment: Speci men Type: SEMINAL FLUID SPECIMEN Performed By: #### B ASA #### [facility] CLIA [id number] [address] [place] [address] Viscosity Ql (Tam) Normal Normal [facility] Comment on above: Order Comment: Speci men Type: SEMINAL FLUID SPECIMEN Performed By: #### B ASA #### [facility] CLIA [id number] [address] [place] [address] CNOVon 06-06-2021 CNOV Office Visit (ANDRBA) ---- MINDI SHARIF ([id number]) 1985 M Date Time Provider Department 06/06/21 11:15 AM ANDROLOGY DEPARTMENT OF SOCIOLOGY [facility] During your visit today, we recorded the following information about you: Swathi Bocanegra 06/06/2021 11:48 AM Signed Routine Semen Analysis Swathi Bocanegra Referring Provider: SELF [200] Allergies As of Date: 06/06/2021 (No Known Allergies) Date Reviewed: 10/28/2017 Reviewed by: Muna ([facility]) Podlogar - Fully Assessed Visit Diagnosis:Fertility testing [Z31.41] Order(s):BASIC SEMEN ANALYSIS [SQBASA] Order #: [id number]. #:[id number] y: 1 Prescriptions as of 06/06/2021 - triamcinolone acetonide (KENALOG) 0.1 % cream Apply 1 application to affected area three times daily. Apply sparingly to area for rash/itching. Meds Comments as of 05/13/2012: no Rx or routine otc supplements May 13, 2012 Problem List As Of Date 06/06/2021 Noted Resolved Pilonidal cyst with abscess [L05.01] 03/10/2012 Encounter Status:Closed by SWATHI BOCANEGRA on 06/06/21 [facility] Vital Signs Date Time Vital Sign Value Performing Clinician Facility 03-13-2025 14:15-0400 Body temperature 98.2 [degF] No Primary Care Physician [facility] 03-13-2025 14:15-0400 Diastolic blood pressure 83 mm[Hg] No Primary Care Physician [facility] 03-13-2025 14:15-0400 Heart rate 89 /min No Primary Care Physician [facility] 03-13-2025 14:15-0400 Respiratory rate 20 /min No Primary Care Physician [facility] 03-13-2025 14:15-0400 SaO2% (BldA) [Mass fraction] 98 % No Primary Care Physician [facility] 03-13-2025 14:15-0400 Systolic blood pressure 135 mm[Hg] No Primary Care Physician [facility] 03-13-2025 12:15-0400 Body height 182.88 cm No Primary Care Physician [facility] 03-13-2025 12:15-0400 Body mass index (BMI) [Ratio] 37.8 kg/m2 No Primary Care Physician [facility] 03-13-2025 12:15-0400 Body weight 126.3 kg No Primary Care Physician [facility] 03-13-2025 12:00-0400 Body temperature 96.91 [degF] Krislyn Aberegg PA Work Phone: [facility] 03-13-2025 12:00-0400 Body weight 126.6 kg Krislyn Aberegg PA Work Phone: [facility] 03-13-2025 12:00-0400 Diastolic blood pressure 82 mm[Hg] Krislyn Aberegg PA Work Phone: [facility] 03-13-2025 12:00-0400 Heart rate 94 /min Krislyn Aberegg PA Work Phone: [facility] 03-13-2025 12:00-0400 Respiratory rate 16 /min Lb Vasques PA Work Phone: [facility] 03-13-2025 12:00-0400 SaO2% (BldA) [Mass fraction] 97 % Lb Vasques PA Work Phone: [facility] 03-13-2025 12:00-0400 Systolic blood pressure 128 mm[Hg] Lb Vasques PA Work Phone: [facility] 10-05-2022 09:07-0500 Body temperature 97.2 [degF] Imani Saad BILINGUAL MEDICAL ASSISTANT.MERCHANDISER RETAIL REPRESENTATIVE Work Phone: [facility] 10-05-2022 09:07-0500 Body weight 126.1 kg Imani Saad BILINGUAL MEDICAL ASSISTANT.MERCHANDISER RETAIL REPRESENTATIVE Work Phone: [facility] 10-05-2022 09:07-0500 Diastolic blood pressure 78 mm[Hg] Imani Saad BILINGUAL MEDICAL ASSISTANT.MERCHANDISER RETAIL REPRESENTATIVE Work Phone: [facility] 10-05-2022 09:07-0500 Heart rate 116 /min Imani Saad BILINGUAL MEDICAL ASSISTANT.MERCHANDISER RETAIL REPRESENTATIVE Work Phone: [facility] 10-05-2022 09:07-0500 Respiratory rate 16 /min Imani Saad BILINGUAL MEDICAL ASSISTANT.MERCHANDISER RETAIL REPRESENTATIVE Work Phone: [facility] 10-05-2022 09:07-0500 SaO2% (BldA) [Mass fraction] 98 % Imani Saad BILINGUAL MEDICAL ASSISTANT.MERCHANDISER RETAIL REPRESENTATIVE Work Phone: [facility] 10-05-2022 09:07-0500 Systolic blood pressure 134 mm[Hg] Imani Saad BILINGUAL MEDICAL ASSISTANT.MERCHANDISER RETAIL REPRESENTATIVE Work Phone: [facility] Encounters Encounter Date Encounter Type Care Provider Facility Start: 03-13-2025 Evaluation and management of inpatient Dr. Benton Almanzar DO -Progressive Care Unit Work Phone: Start: 03-13-2025 End: 03-13-2025 Patient encounter procedure Lb JAMES Work Phone: [facility] [place] Comment on above: Chest pain, unspecif ied type Start: 06-25-2023 End: 06-25-2023 ambulatory [facility] Facility:[facility] Start: 2022 ambulatory No Pcp (Historical) Ref erring Physician Start: 10-05-2022 End: 10-05-2022 ambulatory [facility] Facility:[facility] Start: 10-05-2022 End: 10-05-2022 Patient encounter procedure [facility] MERCHANDISER RETAIL REPRESENTATIVE Work Phone: [facility] Comment on above: Chronic toe pain, ri ght foot (Primary Dx) Start: 10-05-2022 End: 10-05-2022 Subsequent hospital visit by physician Xr [facility] [place] Work Phone: Radiology Comment on above: Chronic toe pain, ri ght foot [M79.674, G89.29] Procedures Date Procedure Procedure Detail Performing Clinician Start: 03-13-2025 CT angiography of ch est with contrast No Primary Care Physician Start: 03-13-2025 D-dimer assay, quantitative No Primary Care Physician Comment on above: D-Dimer ELEVATED (>0 .49): Additional studies and clinicalassessments are indicated to conclude diagnosis of:Deep Vein Thrombosis (DVT) or Pulmonary Embolism (PE)CRITICAL VALUE CALLED TO SERGEY CONLEY (ER)03/13/25 [address].RESULTS READ BACK BY SAME. Start: 03-13-2025 Estimated creatinine clearance No Primary Care Physician Start: 03-13-2025 Plain chest X-ray No Pr ary Care Physician Start: 10-05-2022 Radex toe minimum 2 views [facility] BILINGUAL MEDICAL ASSISTANT.MERCHANDISER RETAIL REPRESENTATIVE Work Phone: Plan of Treatment Date Care Activity Detail Author Start: 05-21-2027 Urine microalbumin profile DTaP,Tdap,Td Vaccine (2 - Td or Tdap) [facility] Start: 04-16-2025 Influenza vaccination Influenza Vaccine (#1) [facility] Start: 03-13-[address] [facility] Start: 03-13-2025 [address] hormone measurement [facility] Start: 03-13-2025 Hospital admission, emergency, from emergency room, medical nature [facility] Start: 03-13-2025 End: 03-13-2025 [facility] Start: 03-13-[address] [facility] Start: 03-13-[address] [facility] Start: 03-13-2025 [facility] Start: 04-16-2024 Covid-19 Vaccine ( season) Covid-19 Vaccine () [facility] Start: 04-16-2024 Influenza vaccination Influenza Vaccine (#1) [facility] Start: 08-16-2022 DEPRESSION ASSESSMENT DEPRESSION ASSESSMENT [facility] Start: 04-16-2022 Influenza vaccination INFLUENZA (#1) [facility] Start: 2021 Lipid panel Lipid Screening [facility] Start: 2021 LIPID SCREEN LIPID SCREEN [facility] Start: 2005 Hepatitis B Vaccine (1 of 3 - 19+ 3-dose series) Hepatitis B Vaccine (1 of 3 - 19+ 3-dose series) [facility] Start: 2005 Urine microalbumin profile DTAP,TDAP,TD (1 - Tdap) [facility] Start: 2004 Anxiety Screening Anxiety Screening [facility] Start: 2004 Depression Screening Depression Screening [facility] Start: 2004 HEPATITIS C SCREENING HEPATITIS C SCREENING [facility] Start: 2004 Hepatitis C screening Hepatitis C Screening [facility] Start: 2004 HIV SCREENING HIV SCREENING [facility] Start: 2004 HIV screening HIV Screening [facility] Start: 04-29-1987 COVID-19 VACCINE (#1) COVID-19 VACCINE (#1) [facility] Start: 1986 HEPATITIS B (1 of 3 - 3-dose series) HEPATITIS B (1 of 3 - 3-dose series) [facility] Alanine aminotransfe rase [Enzymatic activity/volume] in Serum or Plasma [facility] Albumin [Mass/volume ] in Serum or Plasma [facility] Alkaline phosphatase [Enzymatic activity/volume] in Serum or Plasma [facility] Bilirubin, total measurement [facility] Bilirubin.direct [Mass/volume] in Serum or Plasma [facility] Erythrocyte mean cor puscular volume determination [facility] Hematocrit [Volume F raction] of Blood [facility] Hemoglobin [Mass/vol ume] in Blood [facility] Hemoglobin A1c/Hemoglobin.total in Blood [facility] Leukocytes [#/volume ] in Blood [facility] Mean corpuscular hem oglobin concentration determination [facility] Mean corpuscular hem oglobin determination [facility] Neutrophil count [facility] Neutrophil percent differential count [facility] Platelets [#/volume] in Blood [facility] Red blood cell count [facility] Red cell distributio n width determination [facility] Total protein measurement [facility] Troponin T.cardiac [Mass/volume] in Serum or Plasma by High sensitivity method [facility] Troponin T.cardiac [Mass/volume] in Serum or Plasma by High sensitivity method [facility] Immunizations Immunization Date Immunization Notes Care Provider Matthew reddy 10-28-2017 influenza virus vaccine, unspecified formulation [facility] [place] Work Phone: [facility] 05-21-2017 tetanus toxoid, redu paco diphtheria toxoid, and acellular pertussis vaccine, adsorbed No Primary Care Physician [facility] Payers Date Payer Category Payer Blue Cross Blue Shield BLUE CARD PPO OOS [id number] 2021 Unknown [employer] BLUE CARD PPO OOS [id number] 2021-Present [phone] [id number] [place] [id number] PPO [id number] 2021 Unknown [id number] Unknown [id number] Unknown [id number] Unknown [id number] Unknown [id number] Unknown [id number] Social History Date Type Detail Facility Start: 03-17-2012 End: 03-13-2025 Tobacco smoking status NHIS Never smoked tobacco [facility] Work Phone: Start: 03-17-2012 Tobacco use and exposure Smokeless tobacco non-user [facility] Work Phone: Start: 10-05-2022 End: 06-25-2023 Alcohol intake Current drinker of alcohol (finding) [facility] Start: 03-17-2012 Alcohol Comment once or twice a jose enrique h [facility] Start: 1985 Sex Assigned At Not on file [facility] Start: 10-05-2022 End: 10-06-2022 History of Social function [facility] Start: 10-05-2022 End: 10-06-2022 Tobacco use panel [facility] National Score (1-100), lower number is lower risk 96 [facility] Start: 12-23-2018 Alcohol Alcohol [facility] Start: 12-23-2018 Lives Lives [facility] Start: 1985 Sex Assigned At Male W [facility] Functional Status Date Assessment Result Facility 09-07-2014 Are you deaf, or do you have serious difficulty hearing No 09/07/2014 9:50 AM Carolina Parra LPN No [facility] 09-07-2014 Are you blind, or do you have serious difficulty seeing, even when wearing glasses No 09/07/2014 9:50 AM Carolina Parra LPN No [facility] 09-07-2014 Do you have serious difficulty walking or climbing stairs No 09/07/2014 9:50 AM Carolina Parra LPN No [facility] 09-07-2014 Do you have difficul ty dressing or bathing No 09/07/2014 9:50 AM Carolina Parra LPN No [facility] 09-07-2014 Because of a physica l, mental, or emotional condition, do you have difficulty doing errands alone such as visiting a physician's office or shopping No 09/07/2014 9:50 AM Carolina Parra LPN No [facility] Mental Status Date Assessment Result Facility 03-13-2025 Cognitive function Awake;Alert;A ppropriate; Follows Commands [facility] Work Phone: 09-07-2014 Because of a physica l, mental, or emotional condition, do you have serious difficulty concentrating, remembering, or making decisions No 09/07/2014 9:50 AM ROGELIO Zavaleta, CarolinaDARREN No [facility] Clinical Notes 06-06-2021 to 03-13-2025 Note Date & Type Note Facility 03-13-[address] [facility] 03-13-2025 Radiology Diagnostic study note [facility] Imaging Services [address] [place], [place] [address] CTA Chest W/WO Contrast MR#: [id number] Acct: [id number] Name: MINDI SHARIF Rep #: [id number] : 1985 M 39 From: Rico Campos MD PCP: Care Physician,No Primary Status: REG ER Study:CTA Chest W/WO Contrast Date of Exam: 03/13/25 Exam# [id number] Ordering Dr: Markell Brock MD PROCEDURE: CTA CHEST W/WO CONTRAST 03/13/2025 REASON FOR EXAM: ELEVATED D-DIMER TECHNIQUE: CTA CHEST W/WO CONTRAST Multiplanar Sagittal and Coronal images were obtained. CONTRAST: Isovue 3 7 VOLUME: 100 mL One or more dose reduction techniques were used (e.g., Automated exposure control, adjustment of the mA and/or kV according to patient size, use of iterative reconstruction technique). RADIATION DOSE SUMMARY: CTDlvol: 17 mGy DLP: 583.78 mGycm COMPARISON: Prior chest radiograph done earlier in the day. FINDINGS: Hardware: None Lymph nodes: No significant lymph nodes are seen. Heart: Unremarkable. No coronary artery calcification. Thoracic Aorta: No thoracic aortic aneurysm or dissection. Pulmonary Vessels: No pulmonary embolism. Lungs and Airways: Unremarkable Pleura: No pleural effusion. Upper Abdomen: Unremarkable Bones: Unremarkable CT/CTA Chest W/WO Contrast IMPRESSION: NORMAL CHEST CTA. NO EVIDENCE OF ACUTE PULMONARY EMBOLISM. Reading Location: [facility] CC: Dr. Markell Brock MD; No Primary Care Physician ~ Image Scientist: Signed [facility] 03-13-2025 Discharge summary Note Date/Time March 13, 2025 2:43pm [facility] Medical Records Department [address] [place] [address] Emergency Department Summary 03/13/25 MR#: [id number] Acct: [id number] Name: MINDI SHARIF Rep #:[id number] : 1985 39 From: Markell Brock MD PCP: Care Physician,No Primary Status :REG ER Location: ED HPI History of Present Illness Chief Complaint: Chest Pain Narrative Narrative: 39-year-old male who denies significant past medical history presents with intermittent chest pain that he has had for the last week. He states it can last for up to a few hours at a time. He denies any nausea or vomiting associated with this, no shortness of breath but states that he has been diaphoretic. However, he works as a metal fabricator welder, and attributed the high heat to that. This morning, at around 9 AM till around 11 AM he had chest pressure. Hewent to urgent care who advised him to report to the emergency department. As he was driving here from [place], he states his symptoms improved. He has alsonoticed that is usually when he is out, during the week, but not really experiencing chest pressure when he is at home on the weekends. He denies any leg swelling. He does state that his uncle may have had early coronary artery disease in his 30s. No exacerbating or alleviating factors otherwise. PFSH PFSH Home Medications ?Medication ?Instructions ?Recorded ?Last Taken ?Type BLUE CHEW 03/13/25 Unknown History diphenhydramine HCl 25 mg capsule 25 mg PO DAILY PRN s leep 03/13/25 Unknown History (ZzzQuil) Allergy/AdvReac Type Severity Reaction Status Date / Time No Known Allergies Allergy Verified 03/13/25 12:15 Surgical History H/O hernia repair Social History Smoking Status: Never smoker ROS ROS ED ROS Narrative Review of systems positive for hours of chest pain intermittently over the last week. Started at 9:00 today and lasted for approximately 2 hours. No leg swelling. No nausea or vomiting, no fevers or chills, no cough, no shortness ofbreath. Positive sweating. Positive family history. EXAM Physical Exam Narrative Exam Narrative: Afebrile. Vital signs noted. Nontoxic-appearing. Cardiovascular examination reveals regular rate and rhythm. Lungs are clear to auscultation bilaterally. Abdomen is soft and nontender with normal active bowel sounds. Neurological examination nonfocal, nonlateralizing. No pedal edema. 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 Const Vital Signs: 03/13/25 12:15 03/13/25 12:46 03/13/25 12:46 Temperature 96.1 F L Temperature Source Temporal Pulse Rate 91 Respiratory Rate 14 Respiratory Effort Normal Non-Labored Blood Pressure 135/72 H Blood Pressure Mean 93 Pulse Ox 97 Oxygen Delivery Method Room Air Room Air 03/13/25 14:15 Temperature 98.2 F Temperature Source Pulse Rate 89 Respiratory Rate 20 H Respiratory Effort Blood Pressure 135/83 H Blood Pressure Mean 100 Pulse Ox 98 Oxygen Delivery Method MDM MDM MDM Narrative Medical decision making narrative: The differential diagnosis includes but not limited to ACS versus pulmonary embolism versus pneumonia versus pneumothorax. History and physical does not support aortic dissection, he is not having any back pain. Regarding the psoriatic patches on his legs, he states that he does not see a primary care provider and they do not really bother him and that they have been present for years. He was advised to follow-up with her primary care provider regarding this. For his chest pain, comprehensive workup was pursued. EKG was obtained and interpreted by myself independently as normal sinus rhythm at 89 [address]pm [address]opy or acute ST changes. No STEMI. I will obtain a D-dimer to help rule outpulmonary embolism. Chest x-ray interpreted by myself independently shows no evidence of pneumonia or pneumothorax. I reviewed the radiology report which confirms my independent interpretation. I reviewed his laboratory work and he has a normal white count of 7.8 with hemoglobin normal at 14.0, hematocrit 41.4, platelet count 264. BMPis grossly unremarkable except for glucose of 199 with a normal anion gap of 12. BUN normal at 14 with creatinine 0.72. Initially, his D-dimer returned and is elevated just above normal at 0.50. I ordered CTA with results pending. His initial high-sensitivity troponin returned at 76. I discussed the patient with Dr. Rico who agrees with heparin drip and admission to the hospitalist. He will be started on a heparin drip, and a PTT ordered. He will be treated for pulmonary embolism should it be positive, but given his elevated troponin as well, I feel he needs to be admitted for NSTEMI. He was told of the risk of intracranial and GI tract/system bleeding and spontaneous hemorrhage as well as increased bleeding with any wounds, and acknowledges an understanding. Risks and benefits explained as well. I reviewed the radiology report of the CTA of the chest and there is no evidence of pulmonary embolism. I then discussed the patient with Dr. Markell Almanzar for admission to the PCU. Patient is in stable condition. History & Record Review Discussion w/independent historian: Patient Additional record(s) reviewed:: Prior ED visit (Noncontributory to current chiefcomplaint of chest pressure and pain) Lab Data Attestation: I reviewed the patient's lab results. Labs: Laboratory Results - last 24 hr 03/13/25 12:45 WBC 7.8 RBC 5.00 Hgb 14.0 Hct 41.4 MCV 82.8 MCH 28.0 MCHC 33.8 RDW Std Deviation 38.9 RDW Coeff of Jay 13.0 Plt Count 264 MPV 10.2 Immature Gran % (Auto) 0.300 Neut % (Auto) 66.6 Lymph % (Auto) 25.3 [place] % (Auto) 5.4 Eos % (Auto) 1.8 Baso % (Auto) 0.6 Absolute Neuts (auto) 5.2 Absolute Lymphs (auto) 1.97 Nucleated RBC % 0 PT 13.0 INR 1.0 APTT 28.4 D-Dimer Quant (PE/DVT) 0.50 H Sodium 141 Potassium 3.8 Chloride 103 Carbon Dioxide 25.3 Anion Gap 12 BUN 14 Creatinine 0.72 Estim Creat Clear Calc 191.01 Est GFR (MDRD) Non-Af 120 BUN/Creatinine Ratio 19.5 Glucose 199 H Calcium 9.6 Troponin T High Sens 76 H* Radiography Chest X-Ray - ED: 1 View, Read by ED Physician, Read by Radiologist and No AcuteDisease Diagnostic Testing: Clinical Impression(s) from Imaging Studies Chest X-Ray 03/13/25 12:29 IMPRESSION: No acute process is identified in the chest. [facility] 03/13/25 13:20 IMPRESSION: NORMAL CHEST CTA. NO EVIDENCE OF ACUTE PULMONARY EMBOLISM. Reading Location: [facility] Management Discussion w/another healthcare provider: Hospitalist (Dr. Almanzar) and Storage Facility Rental Clerk (Cardiology, Dr. Rico) Discharge Plan Triage Chief Complaint: Chest Pain ED Provider: Markell Brock Dx/Rx/DC Orders Clinical Impression: Chest pain, Non-ST elevation NE (NSTEMI), Sweating Prescriptions: No Action BLUE CHEW Rx Instructions: PT STATES HE HAS A SCRIPT FOR BLUE CHEW AND IT'S LIKE A VIAGRA GUMMY diphenhydramine HCl [ZzzQuil] 25 mg capsule 25 mg PO DAILY PRN (Reason: sleep) Primary Care Provider: Care Physician,No Primary Referrals: Care Physician,No Primary [Primary Care Provider] - Print Language: Swazi What to do if you have Problems For any increased pain, shortness of breath, bleeding, nausea or vomiting, chestpain, or any unexpected problems, contact your Primary Care Provider. Call [facility] ([phone]) or report to the closest Emergency Room. Call 911 if necessary. 03/13/25 1443 <Electronically signed by Markell Brock MD> Cosigner Signature (if applicable): CC: No Primary Care Physician ~ Signed [facility] Work Phone: [phone]) 615-324607-29-2025 Radiology Diagnostic study note [facility] Imaging Services [address] [place], [place] [address] Chest 1 View (Portable) MR#: [id number] Acct: [id number] Name: MINDI SHARIF Rep #: [id number] : 1985 M 39 From: Adriana Quintanilla MD PCP: Care Physician,No Primary Status: PRE ER Study:Chest 1 View (Portable) Date of Exam: 03/13/25 Exam# [id number] Ordering Dr: Markell Brock MD PROCEDURE: CHEST 1 VIEW (PORTABLE) N/A REASON FOR EXAM: CHEST PAIN TECHNIQUE: Frontal view of the chest. COMPARISON: None FINDINGS: Heart size and mediastinal configuration are within normal limits. There is no focal infiltrate or consolidation. There is no pneumothorax or effusion. There is no acute bony abnormality. There is no visible atherosclerosis. RAD/Chest 1 View (Portable) IMPRESSION: No acute process is identified in the chest. Reading Location: [facility] CC: Dr. Markell Brock MD; No Primary Care Physician ~ Image Scientist: Signed [facility]07-29-2025 History of Present illness Narrative* Lb Vasques PA - 03/13/2025 12:07 PM EDT [facility] Noemi Sharif is a 39 year old male. Patient presents with: Chest Pain: off and on x 1 week, mostly at work in heat HPI Chest Pain: - Intermittent chest pain x1 week. - Described as sharp with a sensation of pressure on the chest, like something's sitting on me. - Episodes last 15-20 minutes. - Occurs at home and work; no specific triggers identified. - Pain is somewhat worse with activity. - Most recent episode this morning; pain subsided during drive to the clinic. - No current pain, but reports feeling pressure. - Denies radiation of pain to arms or back, headaches, nausea, emesis, or recent trauma. + family history of cardiac issues. - Denies cough. No past medical history on file. PAST SURGICAL HISTORY Procedure Laterality Date EXCISION PILONIDAL CYST/SINUS EXTENSIVE 03/22/12 tracking, dumbell - excised with skin bridge, closed HERNIA REPAIR HX 87 ALLERGIES Patient has no known allergies. MEDICATIONS triamcinolone acetonide (KENALOG) 0.1 % cream Apply 1 application to affected area three times daily. Apply sparingly to area for rash/itching. (Patient not taking: Reported on 10/05/2022) FAMILY HISTORY Problem Relation Age of Onset Diabetes Maternal Grandfather Diabetes Paternal Grandmother Heart Maternal Grandmother Social History Tobacco Use Smoking status: Never Smokeless tobacco: Never Substance Use Topics Alcohol use: Yes Comment: once or twice a month Drug use: No Review of Systems Cardiovascular: (+) chest pain Respiratory: (-) cough Gastrointestinal: (-) nausea, (-) vomiting Musculoskeletal: (-) chest wall tenderness Neurological: (-) headache Objective BP 128/82 Pulse 94 Temp 36.1 C (96.9 F) Resp 16 Wt 126.6 kg (279 lb 1.6 oz) SpO2 97% Physical Exam Vitals reviewed. Constitutional: General: He is not in acute distress. Appearance: Normal appearance. He is not toxic-appearing. HENT: Mouth/Throat: Mouth: Mucous membranes are moist. Cardiovascular: Rate and Rhythm: Normal rate and regular rhythm. Pulmonary: Effort: Pulmonary effort is normal. Breath sounds: Normal breath sounds. Skin: General: Skin is warm and dry. Neurological: Mental Status: He is alert. General: No acute distress. CV: No chest wall tenderness. { 1. Chest pain, unspecified type (R07.9) - Chest pain for approximately one week, described as intermittent pressure and sharp pain, sometimes worse with activity; no radiation to arms or back, no associated headaches, nausea, vomiting, cough, or recent trauma. - Advised immediate evaluation in the emergency room for further workup - Explained that an EKG alone would not rule out a heart attack and emphasized the importance of comprehensive evaluation. - patient declines EMS, will drive himself to the emergency room. - Patient verbalized understanding and agreed to proceed to the emergency room. and Recording CoverIt[employer] software for draft documentation of the visit was discussed with the patient/authorized food service sales representatives; all questions welcomed and answered. Patient/authorized food service sales representatives agreed to proceed Diagnosis and treatment plan were discussed and questions were answered to the patient's satisfaction. Pt acknowledged understanding of concepts and follow up plan. Specific signs and symptoms that would indicate the need for higher level of care were discussed in detail warranting prompt ER evaluation. Disposition The patient was other (comment) (sent to er). Procedures [facility] NoteHNO ID: [id number] Author: Miranda Connor APRN.MERCHANDISER RETAIL REPRESENTATIVE Service: ? Author Type: Nurse Practitioner Type: Progress Notes Filed: 06/25/2023 11:01 AM Note Text: Subjective She came in with complaints of feeling like there is a cell phone vibrating in the back of his left ankle heel area. Patient says it started yesterday. Patient says its been pretty consistent since then. Patient denies any injuries difficulty with range of motion or pain. Patient says this is never happened before. The history is provided by the patient. No translator interpreter was used. Review of Systems Constitutional: Negative. Skin: Negative. Objective Physical Exam Constitutional: Appearance: Normal appearance. Pulmonary: Effort: Pulmonary effort is normal. Musculoskeletal: Feet: Feet: Comments: Patient says he feels a vibrating in the area marked above. Not tender to palpate. Range of motion within normal limits. Neurological: Mental Status: He is alert. History reviewed. No pertinent past medical history. PAST SURGICAL HISTORY Procedure Laterality Date EXCISION PILONIDAL CYST/SINUS EXTENSIVE 03/22/12 tracking, dumbell - excised with skin bridge, closed HERNIA REPAIR HX 87 ALLERGIES Patient has no known allergies. MEDICATIONS cyclobenzaprine (FLEXERIL) 10 mg tablet Take 1 tablet by mouth two times a day as needed for muscle spasm for up to 7 days. triamcinolone acetonide (KENALOG) 0.1 % cream Apply 1 application to affected area three times daily. Apply sparingly to area for rash/itching. (Patient not taking: Reported on 10/05/2022) FAMILY HISTORY Problem Relation Age of Onset Diabetes Maternal Grandfather Diabetes Paternal Grandmother Heart Maternal Grandmother Social History Tobacco Use Smoking status: Never Smokeless tobacco: Never Substance Use Topics Alcohol use: Yes Comment: once or twice a month Drug use: No ASSESSMENT/PLAN: 1. Discomfort - ICD9: V49.89, ICD10: Z78.9 (primary diagnosis) - CONSULT TO PODIATRY 2. Fasciculation - ICD9: 781.0, ICD10: R25.3 - CYCLOBENZAPRINE 10 MG TABLET Patient was educated about proper use of medication and supportive therapies. Patient was educated to give it a week or so and follow-up with podiatry if symptoms persist. Was okay with this care plan Miranda Connor APRN.[facility]03-14-2023 NotePatient Outreach (REFPHY) SHARIFGREGORYMINDI E ([id number]) 1985 M Date Time Provider Department 10/27/22 NO PCP (HISTORICAL) REFPHY During your visit today, we recorded the following information about you: Cindy Huggins 2022 11:18 AM Signed POPULATION HEALTH NAVIGATION OUTREACH Action/FYI RP Outreach: Patient Declined NATHALIE consult. Patient Identified by Name and : YES, via [employer] Outreach Outcome/Action Spoke to patient / parent / legal guardian: Patient declined Did you use a PCP flex slot to schedule this appointment? No Reason for Outreach Care Gap or Scheduling/Wellness visits Payer: Payor: [place] / Plan: BLUE CARD PPO OOS / Product Type: PPO / Care Gap Reviewed:: ORQ Reminder: Reminder note to check Health Maintenance for items below Health Maintenance items due: HEPATITIS B(1 of 3 - 3-dose series) Never done COVID-19 VACCINE(1) Never done HEPATITIS C SCREENING Never done HIV SCREENING Never done DTAP,TDAP,TD(1 - Tdap) Never done LIPID SCREEN Never done INFLUENZA(1) due on 04/16/2022 DEPRESSION ASSESSMENT Never done Navigation Signature: Cindy Huggins 2022 11:17 AM Allergies As of Date: 2022 (No Known Allergies) Date Reviewed: 10/05/2022 Reviewed by: Imani Nash APRN.MERCHANDISER RETAIL REPRESENTATIVE - Fully Assessed Prescriptions as of 2022 - triamcinolone acetonide (KENALOG) 0.1 % cream Apply 1 application to affected area three times daily. Apply sparingly to area for rash/itching. Meds Comments as of 05/13/2012: no Rx or routine otc supplements May 13, 2012 Problem List As Of Date 2022 Noted Resolved Pilonidal cyst with abscess [L05.01] 03/10/2012 Encounter Status:Closed by CINDY HUGGINS on 10/27/22[facility] 2022 NoteHNO ID: [id number] Author: Cindy Huggins Service: ? Author Type: ? Type: Progress Notes Filed: 2022 11:18 AM Note Text: POPULATION HEALTH NAVIGATION OUTREACH Action/FYI RP Outreach: Patient Declined NATHALIE consult. Patient Identified by Name and : YES, via [employer] Outreach Outcome/Action Spoke to patient / parent / legal guardian: Patient declined Did you use a PCP flex slot to schedule this appointment? No Reason for Outreach Care Gap or Scheduling/Wellness visits Payer: Payor: [place] / Plan: BLUE CARD PPO OOS / Product Type: PPO / Care Gap Reviewed:: ORQ Reminder: Reminder note to check Health Maintenance for items below Health Maintenance items due: HEPATITIS B(1 of 3 - 3-dose series) Never done COVID-19 VACCINE(1) Never done HEPATITIS C SCREENING Never done HIV SCREENING Never done DTAP,TDAP,TD(1 - Tdap) Never done LIPID SCREEN Never done INFLUENZA(1) due on 04/16/2022 DEPRESSION ASSESSMENT Never done Navigation Signature: Cindy Huggins 2022 11:17 [facility]03-14-2023 History of Present illness Narrative* Cindy Huggins - 2022 11:17 AM EDT POPULATION HEALTH NAVIGATION OUTREACH Action/FYI RP Outreach: Patient Declined NATHALIE consult. Patient Identified by Name and : YES, via [employer] Outreach Outcome/Action Spoke to patient / parent / legal guardian: Patient declined Did you use a PCP flex slot to schedule this appointment? No Reason for Outreach Care Gap or Scheduling/Wellness visits Payer: Payor: CYNTHIA / Plan: BLUE CARD PPO OOS / Product Type: PPO / Care Gap Reviewed:: ORQ Reminder: Reminder note to check Health Maintenance for items below Health Maintenance items due: HEPATITIS B(1 of 3 - 3-dose series) Never done COVID-19 VACCINE(1) Never done HEPATITIS C SCREENING Never done HIV SCREENING Never done DTAP,TDAP,TD(1 - Tdap) Never done LIPID SCREEN Never done INFLUENZA(1) due on 04/16/2022 DEPRESSION ASSESSMENT Never done Navigation Signature: Cindy Huggins 2022 11:17 AM documented in [facility]-20-[facility]23 NoteHNO ID: [id number] Author: RT Benny(R) Service: Radiology Author Type: Technologist Type: Progress Notes Filed: 10/05/2022 9:37 AM Note Text: Radiology Service Progress Note PATIENT NAME: Mindi Sharif DATE OF SERVICE: October 05, 2022 TIME: 9:37 AM PATIENT IDENTITY VERIFICATION COMPLETED USING TWO (2) IDENTIFIERS: Name and Date of confirmed by patient verbally. FALL SCREENING: Has the patient had 2 falls in the last year or 1 fall with injury or currently using an Ambulatory Assistive Device (Walker, Cane, Wheelchair, Crutches, etc.)? No PATIENT GENDER DATA: Male PATIENT RELEVANT IMPLANT DATA REVIEWED: Yes RADIOLOGY DEPARTMENT: General X-ray: Exam(s) Completed: Lower Extremity X-Ray(s): Toes, Right PERIPHERAL IV DATA: Not applicable SIGNED BY: RT Benny(R) October 05, 2022 9:37 [facility]02-20-2023 NoteHNO ID: [id number] Author: Imani Nash APRN.MERCHANDISER RETAIL REPRESENTATIVE Service: ? Author Type: Nurse Practitioner Type: Progress Notes Filed: 10/05/2022 10:09 AM Note Text: Subjective HPI HPI Mindi Sharif is a 36 year old male who presents today for CC of right great toe pain. This started months ago. Has tried otc medication for relief. Symptoms are worsened by walking. Denies injury but works on feet all day. Denies numbness/tingling. .Patient presents with: Pain (foot): right on side of foot by big toe x months, increased x 2 days No past medical history on file. PAST SURGICAL HISTORY Procedure Laterality Date EXCISION PILONIDAL CYST/SINUS EXTENSIVE 03/22/12 tracking, dumbell - excised with skin bridge, closed HERNIA REPAIR HX 87 ALLERGIES Patient has no known allergies. MEDICATIONS triamcinolone acetonide (KENALOG) 0.1 % cream Apply 1 application to affected area three times daily. Apply sparingly to area for rash/itching. (Patient not taking: Reported on 10/05/2022) FAMILY HISTORY Problem Relation Age of Onset Diabetes Maternal Grandfather Diabetes Paternal Grandmother Heart Maternal Grandmother Social History Tobacco Use Smoking status: Never Smokeless tobacco: Never Substance Use Topics Alcohol use: Yes Comment: once or twice a month Drug use: No ROS Objective Blood pressure 134/78, pulse 116, temperature 36.2 ?C (97.2 ?F), resp. rate 16, weight 126.1 kg (278 lb), SpO2 98 %. Physical Exam Constitutional: General: He is not in acute distress. Appearance: He is not toxic-appearing or diaphoretic. HENT: Head: Normocephalic and atraumatic. Pulmonary: Effort: Pulmonary effort is normal. No accessory muscle usage or respiratory distress. Musculoskeletal: Feet: Neurological: Mental Status: He is alert and oriented to person, place, and time. ASSESSMENT/PLAN: 1. Chronic toe pain, right foot - ICD9: 729.5, 338.29, ICD10: M79.674, G89.29 -no bony abnormality noted on xray Will schedule with podiatry d/t presence for months. - XR TOE AP/LAT/OBL RIGHT IMPRESSION: No acute osseous abnormality Dictated by : MAURO FLORENCE MD - CONSULT TO PODIATRY - PREDNISONE 10 MG TABLET Imani Nash APRN.[facility]02-20-2023 History of Present illness Narrative* Carmina Navas RT(R) - 10/05/2022 9:30 AM EST Radiology Service Progress Note PATIENT NAME: Mindi Sharif DATE OF SERVICE: October 05, 2022 TIME: 9:37 AM PATIENT IDENTITY VERIFICATION COMPLETED USING TWO (2) IDENTIFIERS: Name and Date of confirmedby patient verbally. FALL SCREENING: Has the patient had 2 falls in the last year or 1 fall with injury or currently using an Ambulatory Assistive Device (Walker, Cane, Wheelchair, Crutches, etc.)? No PATIENT GENDER DATA: Male PATIENT RELEVANT IMPLANT DATA REVIEWED: Yes RADIOLOGY DEPARTMENT: General X-ray: Exam(s) Completed: Lower Extremity X- Ray(s): Toes, Right PERIPHERAL IV DATA: Not applicable SIGNED BY: RT Benny(R) October 05, 2022 9:37 AM documented in this encounterC[facility]-20-[facility]23 History of Present illness Narrative* Imani Nash APRN.MERCHANDISER RETAIL REPRESENTATIVE - 10/05/2022 9:29 AM EST Images from the original note were not included. Subjective HPI HPI Mindi Sharif is a 36 year old male who presents today for CC of right great toe pain. This started months ago. Has tried otc medication for relief. Symptoms are worsened by walking. Denies injury but works on feet all day. Denies numbness/tingling. .Patient presents with: Pain (foot): right on side of foot by big toe x months, increased x 2 days No past medical history on file. PAST SURGICAL HISTORY Procedure Laterality Date EXCISION PILONIDAL CYST/SINUS EXTENSIVE 03/22/12 tracking, dumbell - excised with skin bridge, closed HERNIA REPAIR HX 87 ALLERGIES Patient has no known allergies. MEDICATIONS triamcinolone acetonide (KENALOG) 0.1 % cream Apply 1 application to affected area three times daily. Apply sparingly to area for rash/itching. (Patient not taking: Reported on 10/05/2022) FAMILY HISTORY Problem Relation Age of Onset Diabetes Maternal Grandfather Diabetes Paternal Grandmother Heart Maternal Grandmother Social History Tobacco Use Smoking status: Never Smokeless tobacco: Never Substance Use Topics Alcohol use: Yes Comment: once or twice a month Drug use: No ROS Objective Blood pressure 134/78, pulse 116, temperature 36.2 C (97.2 F), resp. rate 16, weight 126.1 kg (278 lb), SpO2 98 %. Physical Exam Constitutional: General: He is not in acute distress. Appearance: He is not toxic-appearing or diaphoretic. HENT: Head: Normocephalic and atraumatic. Pulmonary: Effort: Pulmonary effort is normal. No accessory muscle usage or respiratory distress. Musculoskeletal: Feet: Neurological: Mental Status: He is alert and oriented to person, place, and time. ASSESSMENT/PLAN: 1. Chronic toe pain, right foot - ICD9: 729.5, 338.29, ICD10: M79.674, G89.29 -no bony abnormality noted on xray Will schedule with podiatry d/t presence for months. - XR TOE AP/LAT/OBL RIGHT IMPRESSION: No acute osseous abnormality Dictated by : MAURO FLORENCE MD - CONSULT TO PODIATRY - PREDNISONE 10 MG TABLET Imani Nash APRN.CNP documented in this encounterC[facility]02-18-2022 NoteHNO ID: [id number] Author: Swathi Bocanegra Service: ? Author Type: Technologist Type: Progress Notes Filed: 10/03/2021 11:37 AM Note Text: Routine Semen Analysis [facility]10-22-2021 NoteHNO ID: [id number] Author: Swathi Bocanegra Service: ? Author Type: Technologist Type: Progress Notes Filed: 06/06/2021 11:48 AM Note Text: [facility]* Diagnosis Chronic toe pain, right foot- Primary documented in this encounter [facility] HospitalEvalub[facility]* Diagnosis Onset Date Resolution Status Admit Date Chest pain acute March 13 2:39pm Non-ST elevation NE (NSTEMI) acute March 13, 2025 2:39pm Sweating acute March 13 2:39pm [facility] Work Phone: Evaluation note* Diagnosis Chest pain, unspecified type documented in this encounter [facility] (narrative)No reason for referral information availableWProMedica [facility] Work Phone: Reason for visit Narrative* Diagnostic Procedure Only (Urgent) - Closed Specialty Diagnoses / Procedures Referred By Contac t Referred To Contact XR IMAGING Diagnoses Chronic toe pain, right foot Procedures XR TOE AP/LAT/OBL RIGHT RADEX TOE MINIMUM 2 VIEWS Imani Nash APRN.MERCHANDISER RETAIL REPRESENTATIVE [address] [place] [address] [place] [id number] Referral ID Status Reason Start Date Expiration Date V isits Requested Visits Authorized [id number] Closed Auto-Generate d Referral 10/05/2022 11/04/2023 1 1 [facility] Summary Purpose Family History No Family History Records FoundNo Family History Records FoundNo Family History Records Found Advance Directives Advance Directive Response Recorded Date/ Time Do you have a Healthcare Power of Physician Office Specialist? No March 13, 2025 12:46pm Reason for Referral Specialty Diagnoses / Procedures Referred By Contac t Referred To Contact Podiatry Diagnoses Chronic toe pain, right foot Procedures CONSULT TO PODIATRY OFFICE/OUTPATIENT NEW HIGH MDM 60-74 MINUTES Imani Nash APRN.MERCHANDISER RETAIL REPRESENTATIVE [address] [place] [address] Referral ID Status Reason Start Date Expiration Date Visits Requested Visits Authorized [id number] Authorized PCP Requested Referral 10/05/2022 10/05/2023 1 1 Specialty Diagnoses / Procedures Referred By Florencio mooney Referred To Contact XR IMAGING Diagnoses Chronic toe pain, right foot Procedures XR TOE AP/LAT/OBL RIGHT RADEX TOE MINIMUM 2 VIEWS Imani Nash APRN.MERCHANDISER RETAIL REPRESENTATIVE [address] [place] [address] Xr Imaging Referral ID Status Reason Start Date Expiration Date V isits Requested Visits Authorized [id number] Closed Auto-Generate d Referral 10/05/2022 11/04/2023 1 1 Chief Complaint and Reason for Visit Chief Complaint Admit Date NSTEMI March 13, 2025 2:39 pm Reason for Visit Admit Date Chest pain March 13, 2025 2:39 pm Non-ST elevation NE (NSTEMI) March 13, 2025 2:39pm Sweating March 13, 2025 2:39 pm Additional Source Comments (unrecognized sect ion and content) No Status Records FoundNo Status Records FoundNo Status Records Found INFORMATION SOURCE (unrecogn ized section and content) DATE CREATED AUTHOR 09/20/2021 [facility] DATE CREATED AUTHOR AUTHOR'S ORGANIZ ATION 10/10/2021 [facility] DATE CREATED AUTHOR AUTHOR'S ORGANIZ ATION 06/27/2023 [facility] Source Comments (unrecognize d section and content) In the event this informatio n is protected by the Federal Confidentiality of Alcohol and Drug Abuse Patient Records regulations: The Federal rules restrict any use of the information to criminally investigate or prosecute any alcohol or drug abuse patient.[facility] HospitalIn the event this information is protected by the Federal Confidentiality of Alcohol and Drug Abuse Patient Records regulations: The Federal rules restrict any use of the information to criminally investigate or prosecute any alcohol or drug abuse patient.[facility] HospitalIn the event this information is protected by the Federal Confidentiality of Alcohol and Drug Abuse Patient Records regulations: The Federal rules restrict any use of the information to criminally investigate or prosecute any alcohol or drug abuse patient.[facility] HospitalIn the event this information is protected by the Federal Confidentiality of Alcohol and Drug Abuse Patient Records regulations: The Federal rules restrict any use of the information to criminally investigate or prosecute any alcohol or drug abuse patient.[facility] Reason for Visit (unrecogniz ed section and content) Reason Comments Pain (foot) right on side of daya t by big toe x months, increased x 2 days Reason Comments Chest Pain off and on x 1 week, mostly at work in heat Care Teams (unrecognized sec tion and content) Team Status: Active Member Role/Relationship Status Dates No Primary Care Physician Primary Care Provider Active Team Status: Active Member Role/Relationship Status Dates No Primary Care Physician Primary Care Provider Active Start: March 13, 2025 Markell Brock MD Emergency Provider Active Star t: March 13, 2025 Dr. Benton Almanzar , DO Admit Provider Active Start: March 13, 2025 Dr. Benton Almanzar , DO Attending Provider Active Start: March 13, 2025 Goals (unrecognized section and content) Goals may be documented in a n alternate section FOR RECORDS PERTAINING TO PATIENTS WHO ARE OR HAVE BEEN ENROLLED IN A CHEMICAL DEPENDENCY/SUBSTANCEABUSE PROGRAM, SOME INFORMATION MAY BE OMITTED. This clinical summary was aggregated from multiple sources. Caution should be exercised in using it in the provision of clinical care. This summary normalizes information from multiple sources, and as a consequence, information in this document may materially change the coding, format and clinical context of patient data. In addition, data may be omitted in some cases. CLINICAL DECISIONS SHOULD BE BASED ON THE PRIMARY CLINICAL RECORDS. [facility]. provides no warranty or guarantee of the accuracy or completeness of information in this document.
[2025-03-14] VITALS (14 sets, daily range): BP systolic 125–148; BP diastolic 75–93; PULSE 74–98; RESP 15–18; TEMP 36.6–36.9; O2SAT 95–98
[2025-03-14 03:39] LABS: Hematocrit 39.9 % (40-54); Hemoglobin 13.3 g/dL (13.0-16.5); Immature Granulocytes Count 0.020 X10^3/uL (0.0-0.0); Mean Corp Hgb Conc 33.3 g/dL (32-36); Mean Corpuscular Volume 84.0 fL (80-94); Mean Platelet Vol. 10.0 fl (6.2-12.0); NRBC Flagged by Analyzer 0 % (0-5); Platelet Count 231 K/mm3 (150-450); RBC Distribution Width CV 13.1 % (11.6-14.6); RBC Distribution Width SD 40.1 fl (35.1-43.9); Red Blood Count 4.75 M/mm3 (4.6-6.2); White Blood Count 7.2 K/mm3 (4.4-11.0)
[2025-03-14 04:24] LABS: Partial Thromboplast Time 57.4 Seconds (24.1-36.2)
[2025-03-14 04:50] LABS: Anion Gap 10 (5-15); BUN 12 mg/dL (4-19); BUN/Creat Ratio 20.4 RATIO (10-20); Calcium,Total 8.9 mg/dL (7.6-11.0); Carbon Dioxide 25.7 mmol/L (21.0-32.0); Chloride 105 mmol/L (98-108); Estimated Creatinine Clearance 228.56 ml/min (50-250); Glucose 155 mg/dL (70-99); Potassium 3.7 mmol/L (3.3-5.1)
[2025-03-14 05:25] LABS: Cholesterol 146 mg/dL (<=200); Low Density Lipoprotein Calc. 57 mg/dL; Triglycerides 280 mg/dL; Very Low Density Lipoprotein 56 mg/dL (5-40); cholesterol:hdl ratio screen 4.38
[2025-03-14] MEDS: Metoprolol(XL)Succ 25 MG Tablet PO (05:34)
[2025-03-14] MEDS: 0.9% Normal Saline (1000mL) 1,000 ML 15 ML IV (05:35)
--- NOTE | 2025-03-14 05:55 | EKG12_ITS ---
Test Reason : HEART CATH Blood Pressure : */* mmHG Vent. Rate : 84 BPM Atrial Rate : 84 BPM P-R Int : 150 ms QRS Dur : 74 ms QT Int : 392 ms P-R-T Axes : 41 22 108 degrees QTcB Int : 463 ms Normal sinus rhythm Nonspecific T wave abnormality Prolonged QT Abnormal ECG When compared with ECG of 13-Mar-2025 12:23, MANUAL COMPARISON REQUIRED DATA IS UNCONFIRMED Confirmed by CATHY STOVER, UBALDO ([id number]), mapping editor JACK CHONG ([id number]) on 03/15/2025 6:31:07 AM Referred By: Confirmed By: UBALDO MORGAN MD
--- NOTE | 2025-03-14 07:51 | PN.HOSP_ITS ---
Reason for Visit Chief Complaint: Chest pain Subjective Subjective Patient is chest pain-free and eating lunch. Had cardiac catheterization where 3 stents were placed this morning. Patient states he is very pleased with his care and has no questions at this time. Objective Data Objective Data Vital Signs: Vital Signs Temp Pulse Resp BP Pulse Ox O2 Del Method 98.3 F 81 15 141/93 H 97 Room Air 03/14/25 03:41 03/14/25 05:34 03/14/25 03:41 03/14/25 03:41 03/14/25 03:41 03/14/25 03:41 Oxygen Delivery Method Room Air Weight: 125.6 kg Body Mass Index (BMI) 37.5 Intake & Output: Intake and Output for Last 24 Hours 03/12/25 03/13/25 03/14/25 23:59 23:59 23:59 Intake Total 1093.87 / 1093.87 97.93 / 97.93 Balance 1093.87 / 1093.87 97.93 / 97.93 Lab / Micro Data 03/14/25 03:32 03/14/25 03:32 Labs: Laboratory Results - last 24 hr 03/13/25 12:45: WBC 7.8, RBC 5.00, Hgb 14.0, Hct 41.4, MCV 82.8, MCH 28.0, MCHC 33.8, RDW Std Deviation 38.9, RDW Coeff of Jay 13.0, Plt Count 264, MPV 10.2, Immature Gran % (Auto) 0.300, Neut % (Auto) 66.6, Lymph % (Auto) 25.3, [place] % (Auto) 5.4, Eos % (Auto) 1.8, Baso % (Auto) 0.6, Absolute Neuts (auto) 5.2, Absolute Lymphs (auto) 1.97, Nucleated RBC % 0, PT 13.0, INR 1.0, APTT 28.4, D- Dimer Quant (PE/DVT) 0.50 H, Sodium 141, Potassium 3.8, Chloride 103, Carbon Dioxide 25.3, Anion Gap 12, BUN 14, Creatinine 0.72, Estim Creat Clear Calc 191.01, Est GFR (MDRD) Non-Af 120, BUN/Creatinine Ratio 19.5, Glucose 199 H, Calcium 9.6, Troponin T High Sens 76 H* 03/13/25 14:40: Troponin T Hi Sens 2 Hr 86 H* 03/13/25 16:20: POC Glucose 122 H 03/13/25 16:36: Hemoglobin A1c 7.7 H, Total Bilirubin 0.47, Direct Bilirubin 0.23, AST 27, ALT 25, Alkaline Phosphatase 75, Troponin T Hi Sens 4Hr 100 H*, Total Protein 7.0, Albumin 3.9, Globulin 3.1, TSH 2.130 03/13/25 20:23: APTT 49.8 H 03/13/25 21:34: POC Glucose 149 H 03/14/25 03:32: WBC 7.2, RBC 4.75, Hgb 13.3, Hct 39.9 L, MCV 84.0, MCH 28.0, MCHC 33.3, RDW Std Deviation 40.1, RDW Coeff of Jay 13.1, Plt Count 231, MPV 10.0, Immature Gran % (Auto) 0.300, Neut % (Auto) 52.5, Lymph % (Auto) 38.1, [place] % (Auto) 6.1, Eos % (Auto) 2.4, Baso % (Auto) 0.6, Absolute Neuts (auto) 3.8, Absolute Lymphs (auto) 2.75, Nucleated RBC % 0, APTT 57.4 H, Sodium 140, Potassium 3.7, Chloride 105, Carbon Dioxide 25.7, Anion Gap 10, BUN 12, C reatinine 0.60 L, Estim Creat Clear Calc 228.56, Est GFR (MDRD) Non-Af 127, B UN/Creatinine Ratio 20.4 H, Glucose 155 H, Calcium 8.9, Triglycerides 280 H, Cholesterol 146, LDL Cholesterol, Calc 57, VLDL Cholesterol 56 H, HDL Cholesterol 33 L, Cholesterol/HDL Ratio 4.38 03/14/25 05:32: POC Glucose 169 H Radiography Diagnostic Testing: Radiology Impression Chest X-Ray 03/13/25 12:29 IMPRESSION: No acute process is identified in the chest. Reading Location: [facility] Chest CTA 03/13/25 13:20 IMPRESSION: NORMAL CHEST CTA. NO EVIDENCE OF ACUTE PULMONARY EMBOLISM. Reading Location: [facility] Physical Exam Const alert, oriented x3, no apparent distress and well nourished; Negative for average body habitus Constitutional Narrative: Young middle-aged, white male, sitting up in bed eating lunch, family at bedside, appears comfortable, nontoxic HEENT head/scalp atraumatic and moist oral mucous membranes Head and Scalp: normocephalic Resp normal respiratory effort, no retractions, no use of accessory muscles and clear to auscultation bilaterally Auscultation: Negative for crackles, rhonchi or wheezes Cardio regular rate, regular rhythm, S1 normal heart sound, S2 normal heart sound, no murmurs, no rub, no gallops and no clicks GI normal to inspection, nondistended, normoactive bowel sounds, soft to palpation and non-tender Extremity no clubbing, cyanosis or edema Extremity Narrative: Pedal pulses are 2+, left radial pulses 2+, right radial pulse compression device in place status postcardiac catheterization Neuro moves all extremities and no focal motor deficits Speech: speech normal Psych affect normal Psych Narrative: Very pleasant, eye contact is good and patient interacts appropriately Assessment & Plan Assessment/Plan (1) Non-ST elevation [place] (NSTEMI): (2) Diabetes mellitus, type 2: (3) HTN (hypertension): (4) Ischemic cardiomyopathy: PLAN: Plan NSTEMI - Cardiac catheterization done this morning and patient found to have premature coronary artery disease with high-grade stenosis in the RCA and the proximal and mid left circumflex 3 drug-eluting stents were placed with 2 in the circumflex and 1 in the RCA - Continue dual antiplatelet therapy with aspirin and Plavix-importance of compliance was discussed extensively with the patient - Continue statin - Continue beta-joel - Hemoglobin A1c was found to be elevated at 7.7 making the patient diabetic will start Jardiance given depressed EF - Echocardiogram done today and shows - An EF of 45% with mild to moderate segmental systolic dysfunction - Cardiac rehab - Cardiology following-appreciate input Newly diagnosed DM-2 - A1c is 7.7 - Given depressed EF we will start Jardiance 25 mg daily - Outpatient follow-up with primary care physician with repeat A1c recommended in 3 months - Diabetic education with a dietitian Hypertension - Continue metoprolol Ischemic cardiomyopathy - EF on echo was 45% - Continue beta-joel as ordered - Start Jardiance as treatment for his diabetes and cardiomyopathy - Add YESENIA inhibitor if able - Anticipate improved EF after goal-directed therapy as I do suspect he has stunned myocardium with NSTEMI Obesity - BMI 37.6 - Recommend weight loss - Complicates treatment, prognosis, outcomes DVT prophylaxis - Heparin drip is off will start subcu Lovenox CODE STATUS -full code Charges/Coding Visit Charges Inpatient E&M: 62920 Subs Hosp L2
--- NOTE | 2025-03-14 08:18 | NURSING ---
Report called to builder's labourer RN. Patient PIV x2 flushed with 5ml saline and locked. Consent previously signed.
--- NOTE | 2025-03-14 10:30 | EKG12_ITS ---
Test Reason : POST-PCI Blood Pressure : */* mmHG Vent. Rate : 82 BPM Atrial Rate : 82 BPM P-R Int : 156 ms QRS Dur : 74 ms QT Int : 382 ms P-R-T Axes : 48 54 126 degrees QTcB Int : 446 ms Normal sinus rhythm Cannot rule out Inferior infarct , age undetermined Abnormal ECG When compared with ECG of 14-Mar-2025 11:32, MANUAL COMPARISON REQUIRED DATA IS UNCONFIRMED Confirmed by CATHY STOVER, UBALDO ([id number]), manuscript editor MERCY PATEL ([id number]) on 03/15/2025 8:43:52 AM Referred By: Confirmed By: UBALDO MORGAN MD
[2025-03-14] MEDS: 0.9% Saline Lock 10 ML Syringe IV (11:21)
[2025-03-14] MEDS: 0.9% Normal Saline (1000mL) 1,000 ML 150 ML IV (11:21)
[2025-03-14 15:22] LABS: ACT Activated Clotting Time 245 sec (74-137)
[2025-03-14 15:22] LABS: ACT Activated Clotting Time 268 sec (74-137)
--- NOTE | 2025-03-14 15:23 | CASEMGMT ---
YAEL ZARATE Assessment Face to Face with patient for initial transition planning/care coordination assessment. YAEL ZARATE introduced self and role at [facility], pt voices understanding. Pt is A&Ox4 and is resting comfortably in bed and is calm. Pts at bedside. Care providers, pharmacy, and demographics verified. Admitting dx: NSTEMI LACE Strata: 1 PCP: No PCP. Pt was receptive to the provider list and states that he will get himself established Specialists: Denies Preferred Pharmacy: [facility] Insurance: [place] Prescription Benefit:Yes LNOK: Lisseth (W), Swathi (Mother) Living Arrangements: Pt lives with his in a 2 story home with 5 steps to enter ADLs/IADLs: Indep. 6-click score is 24 Transportation: Self, DME: Denies current uses or needs HHC/SNF: Denies hx or needs Pt?s goal: Home Plan: Home and to get established with a PCP and follow up with cardiology as recommended. Pt states that he feels safe with this plan and also feels safe returning home with his once he is medically ready and denies further questions or concerns at this time. Meghan Baird RN, CM
--- NOTE | 2025-03-14 15:28 | CRPHASE1 ---
Patient Communication Patient Information Former Patient:: Phase I PHII Cardiac Rehab Discussed with Patient:: Yes Guide to Cardiac Rehab Given to Patient:: Yes Cardiac Rehab Facility Choice List Given to Patient:: Yes Communication to Cardiac Rehab Choice Program [facility] CR PHII:: Communication Given to CR and Refer to [facility] Choice Program Other:: Communication Given to CR Furnace Erector:: Jacquelyn Orozco Phase II Cardiac Rehab:: Yes Sessions:: 36 sessions - 2 days/wk, 18 weeks Post Discharge Choice Letter Given to Patient:: Yes Phase I Charge:: Level I - Education Medical/Surgical History Medical History NE:: Yes Angina:: Yes CAD:: Yes Cardiomyopathy:: Yes Diabetes:: Yes Diabetes Type II:: Yes Hypertension:: Yes CVA/TIA: Surgical History PTCA:: Yes Ambulation Ambulation Notes:: independent Cardiac Rehabilitation Info Program Information Cardiac Rehabilitation Program Information: Cardiac Rehab The cardiac rehab team at [facility] consists of highly skilled exercise physiologists, nurses, respiratory therapists and physicians working together with you. Our purpose is to help you have a full recovery and achieve the goals you set for yourself. Over the years many of our patients have returned to activities they assumed they would never do again! We can help restore your confidence and motivation to make lifestyle changes that can have a significant impact on your health and quality of life! We can help answer questions and concerns you may have about exercise, lifestyle, medications, diet, stress and anxiety which are common following a hospitalization. WE monitor ECG and vital signs during exercise and discuss your progress with you and report to your physician(s). Cardiac Rehab is proven to help reduce readmissions, improve functional capacity and lower recurrence of problems with your heart. Our Cardiac Rehab program is Certified by the [place] [employer] Pulmonary [employer] (AACVPR) and Accredited by the [place] [employer] through our [facility]. You can contact us at . We invite you to call us with your questions or to get started in our program. If you have other questions or concerns be sure to ask your physician/provider during your follow-up visit. WE look forward to seeing you!
--- NOTE | 2025-03-14 15:29 | CRPH1.INSTRU ---
General Education Discussed with Patient CAD and cardiac anatomy and function:: Patient communicates acknowledgment and Family communicates acknowledgment Explanation of diagnoses and procedures:: Patient communicates acknowledgment and Family communicates acknowledgment Sign/Symptoms of WI:: Patient communicates acknowledgment and Family communicates acknowledgment Antiplatelet therapy: Patient communicates acknowledgment and Family communicates acknowledgment Proper use of NTG-SL: Patient communicates acknowledgment and Family communicates acknowledgment Emergency procedures and activation of EMS: Patient communicates acknowledgment and Family communicates acknowledgment Compliance of all prescribed medications: Patient communicates acknowledgment and Family communicates acknowledgment Smoking Risk Factors Patient Nicotine/Smoking Risk Factors Are:: Never smoked Response Code Nicotine/Smoking Response Code:: Not instructed Dyslipidemia Recommendations Recommendations Include:: Lipid profile not available Response Code Dyslipidemia Response Code:: Not instructed Overweight/Obesity Risk Factors Patient Overweight/Obesity Risk Factors Are:: Obesity - > or = 30 (37.6) Recommendations Recommendations Include:: Weight loss of 5-10%, Reduced calorie diet and Exercise 5-7 times/week Response Code Overweight/Obesity:: Patient communicates acknowledgment and Family communicates acknowledgment Hypertension Recommendations Recommendations Include:: Maintain BP <130/85 and Decrease/maintain normal body weight Response Code Hypertension:: Patient communicates acknowledgment and Family communicates acknowledgment Heart Disease Risk Factors Patient Heart Disease Risk Factors Are:: Family history of heart disease < 65 years old and Previous cardiac event Recommendations Recommendations Include:: Educated family members of their risk and Educated family members of importance of prevention of heart disease Response Code Heart Disease Response Code:: Patient communicates acknowledgment and Family communicates acknowledgment Diabetes Recommendations Recommendations Include:: Maintain fasting blood sugars 70-110 md/dL, Maintain HgbA1c of 6% or less, Monitor blood sugar as prescribed, Diabetic dietary guidelines and Decrease/maintain body weight Response Code Diabetes:: Patient communicates acknowledgment and Family communicates acknowledgment Metabolic Syndrome Risk Factors Patient Metabolic Syndrome Risk Factors Are [3 of 5]:: Fasting blood sugar > 100 mg/dL, Waist circumference > 35 [female] or 40 [male] and Hypertension Recommendations Recommendations Include:: Reinforce compliance to risk factor modifications, Patient is diabetic and Encouraged follow-up with Primary Care Physician Response Code Metabolic Syndrome Response Code:: Patient communicates acknowledgment and Family communicates acknowledgment Sedentary Recommendations Recommendations Include:: Monitored Outpatient Cardiac Rehab Response Code Sedentary Response Code:: Patient communicates acknowledgment and Family communicates acknowledgment Stress Risk Factors Patient Stress Risk Factors Are:: Patient denies stress as a risk factor Response Code Stress Response Code:: Not instructed
[2025-03-15 03:30] VITALS: BP 117/75; PULSE 82; RESP 18; TEMP 36.6; O2SAT 100
[2025-03-15 07:17] LABS: Hematocrit 39.6 % (40-54); Hemoglobin 13.0 g/dL (13.0-16.5); Mean Corp Hgb Conc 32.8 g/dL (32-36); Mean Corpuscular Volume 83.7 fL (80-94); Mean Platelet Vol. 10.5 fl (6.2-12.0); Platelet Count 236 K/mm3 (150-450); RBC Distribution Width CV 13.0 % (11.6-14.6); RBC Distribution Width SD 39.4 fl (35.1-43.9); Red Blood Count 4.73 M/mm3 (4.6-6.2); White Blood Count 7.2 K/mm3 (4.4-11.0)
[2025-03-15 08:12] LABS: AST(SGOT) 25 U/L (<=37); Alanine Aminotransfer ALT/SGPT 23 U/L (<=46); Albumin, Serum 3.6 g/dL (3.5-5.0); Alkaline Phosphatase 71 U/L (40-129); Anion Gap 11 (5-15); BUN 12 mg/dL (4-19); BUN/Creat Ratio 18.1 RATIO (10-20); Calcium,Total 9.2 mg/dL (7.6-11.0); Carbon Dioxide 24.8 mmol/L (21.0-32.0); Chloride 105 mmol/L (98-108); Estimated Creatinine Clearance 210.97 ml/min (50-250); Globulin 3.2 g/dL (2.2-4.2); Glucose 163 mg/dL (70-99); Potassium 4.1 mmol/L (3.3-5.1)
[2025-03-15 09:06] VITALS: BP 131/92; PULSE 75; RESP 17; TEMP 36.5; O2SAT 98
[2025-03-15 09:09] VITALS: PULSE 75
[2025-03-15] MEDS: Metoprolol(XL)Succ 25 MG Tablet PO (09:09)
--- NOTE | 2025-03-15 10:00 | EKG12_ITS ---
Test Reason : POST PCI Blood Pressure : */* mmHG Vent. Rate : 79 BPM Atrial Rate : 79 BPM P-R Int : 150 ms QRS Dur : 72 ms QT Int : 376 ms P-R-T Axes : 36 15 116 degrees QTcB Int : 431 ms Normal sinus rhythm Nonspecific T wave abnormality Abnormal ECG When compared with ECG of 14-Mar-2025 05:00, MANUAL COMPARISON REQUIRED DATA IS UNCONFIRMED Confirmed by CATHY STOVER, UBALDO ([id number]), offline editor MERCY PATEL ([id number]) on 03/15/2025 8:44:22 AM Referred By: Confirmed By: UBALDO MORGAN MD
--- NOTE | 2025-03-15 11:38 | DS.PCM_ITS ---
Providers Date of Admission: 03/13/25 Date of Discharge: 03/15/25 Primary Care Physician: Zuri Primary Care Phys Consultations 03/13/25 15:45 Consult: Cardiology Routine Consulting Provider: Pawan Rico Reason for Consult: NSTEMI EMERGENT Consult: No MD Notified: Yes Date Notified: 03/13/25 Time Notified: 15:50 Method of Notification: Text Reason For Visit: NSTEMI Diagnosis Discharge Diagnosis (1) Non-ST elevation [place] (NSTEMI): Status: Acute Code(s): I21.4 - Non-ST elevation (NSTEMI) myocardial infarction (2) Diabetes mellitus, type 2: Status: Acute Code(s): E11.9 - Type 2 diabetes mellitus without complications (3) HTN (hypertension): Status: Chronic Code(s): I10 - Essential (primary) hypertension (4) Ischemic cardiomyopathy: Status: Acute Code(s): I25.5 - Ischemic cardiomyopathy Medications at Discharge Home Medications BLUE CHEW 03/13/25 diphenhydramine HCl 25 mg capsule (ZzzQuil) 25 mg PO DAILY PRN sleep 03/13/25 aspirin 81 mg chewable tablet 81 mg PO BREAKFAST #0 tabs 03/15/25 atorvastatin 80 mg tablet 80 mg PO QHS #30 tabs 03/15/25 clopidogrel 75 mg tablet 75 mg PO DAILY #30 tabs 03/15/25 empagliflozin 25 mg tablet (Jardiance) 25 mg PO DAILY #30 tabs 03/15/25 lisinopril 2.5 mg tablet 2.5 mg PO DAILY #30 tabs 03/15/25 metoprolol succinate 25 mg tablet,extended release 24 hr 25 mg PO DAILY #30 tabs 03/15/25 Hospital Course Procedures 2-D Echocardiogram, Cardiac catheterization, EKG and - (Chest x-ray) Summary of Care Provided Minutes Spent on Discharge: 38 Hospital Course: Mr. Pagan is a 39-year-old white male who presented to the emergency department at [facility] on 03/13/2025 with chief complaint of chest pain. He lives at home with his and child and has no significant past medical history. He did report that his maternal grandmother in her late 30s from coronary disease and his uncle had a heart attack in his 30s as well. He works as a combination welder apprentice. He initially developed chest discomfort a week ago Wednesday but stated it was while he was working outside in the heat so he did not think much of it. He unfortunately developed worsening chest pain over the few days prior to presentation had not improved so he came in for further evaluation. Patient did indicate that his symptoms improved after aspirin in the emergency department. He denied any concomitant symptoms. He is a lifelong non-smoker. Vital signs on presentation showed temperature of 98.2, heart rate 89, respiratory rate 20, blood pressure 135/83 and pulse ox was 98% on room air. CBC was unremarkable. Chemistry panel was unremarkable other than hyperglycemia that was nonfasting with a blood sugar of 199. Cardiac enzymes were drawn his initial troponin was 76 with a delta of 86-08/19 troponin of 100. He was admitted and placed on heparin drip as well as a statin, low-dose beta- rhea, aspirin and cardiology was consulted. Lipids were obtained and his total cholesterol was 146 with an LDL of 57 and HDL of 33 and triglycerides of 280. Hemoglobin A1c was obtained and found to be 7.7. He was taken to [facility] at which time he was found to have obstructive disease in the circumflex which required 2 stents in the RCA which required 1 stent. He was placed on Plavix in addition to aspirin for dual antiplatelet therapy coverage and an echocardiogram was performed. Echo showed an EF of 45% with mild to moderate segmental systolic dysfunction and normal valves. Given his new diagnosis of diabetes and ischemic cardiomyopathy likely from stunned myocardium he was placed on Jardiance 25 mg daily for his diabetes. Common and severe side effects were discussed prior to discharge. I do not feel that he needs to regularly checks his blood sugars but he should have a follow-up A1c in 3 months. Dietitian was consulted and he was given papers at the time of discharge with regards to his new diagnosis of diabetes. With regards to his cardiac care he was discharged on aspirin, Plavix, metoprolol, lisinopril 2.5 mg daily, and atorvastatin to complete goal-directed therapy. He will follow-up with cardiology in the next 2 to 4 weeks. Will also follow-up with cardiac rehab for prescribed exercise program post [place]. Patient was able to be discharged home in stable condition on 03/15/2025. He is released to go back to work on Wednesday. We did advise him to avoid any heavy lifting with his right arm for the next 48 to 72 hours. He is a combination welder apprentice so that is why we delayed his return to work. He is not currently status with primary care physician but we did advise him to do so and resources were given by case management prior to discharge. Discharge diagnoses: NSTEMI Newly diagnosed DM-2 Essential hypertension Ischemic cardiomyopathy Hypertriglyceridemia Obesity Physical Exam Const alert, oriented x3, no apparent distress, no limitations and well nourished; Negative for average body habitus Constitutional Narrative: Young middle-aged, white male, sitting up in bed watching television and eating breakfast, family at bedside, patient appears comfortable, nontoxic General Appearance: cooperative, comfortable, well kempt and well developed Exam Limitations: no limitations Nutritional Appearance: obese HEENT normocephalic, head/scalp atraumatic, hearing grossly normal bilaterally, nasal mucous membranes and turbinates normal and moist oral mucous membranes HEENT Narrative: Mallampati 2-3, no thrush Eyes EOMs intact bilaterally and conjunctivae normal Eyes Narrative: No scleral icterus Neck supple Neck Narrative: Trachea midline Resp normal respiratory effort, normal air movement, no retractions, no use of accessory muscles and clear to auscultation bilaterally Auscultation: Negative for crackles, rhonchi or wheezes Cardio regular rate, regular rhythm, S1 normal heart sound, S2 normal heart sound, no murmurs, no rub, no gallops and no clicks GI normal to inspection, nondistended, normoactive bowel sounds, soft to palpation and non-tender Extremity no clubbing, cyanosis or edema Extremity Narrative: Pedal pulses are 2+, bilateral radial pulses 2+, right radial artery is clean dry and intact without any drainage bandage in place Skin no jaundice, no petechiae and no mottling Skin Narrative: Right radial artery access site with bandage in place and clean dry and intact Neuro moves all extremities and no focal motor deficits Speech: speech normal Psych mental status grossly normal and affect normal Psych Narrative: Very pleasant, eye contact is good and patient interacts appropriately Weight / BMI Weight Weight: 125.6 kg Body Mass Index (BMI) 37.5 ABG / Lab / Microbiology Data 03/15/25 06:37 03/15/25 06:37 Laboratory: Laboratory Results - last 24 hr 03/14/25 09:05: Activated Clotting Time 250 H 03/14/25 21:18: POC Glucose 159 H 03/15/25 06:16: POC Glucose 149 H 03/15/25 06:37: WBC 7.2, RBC 4.73, Hgb 13.0, Hct 39.6 L, MCV 83.7, MCH 27.5, MCHC 32.8, RDW Std Deviation 39.4, RDW Coeff of Jay 13.0, Plt Count 236, MPV 10.5, Sodium 140, Potassium 4.1, Chloride 105, Carbon Dioxide 24.8, Anion Gap 11, BUN 12, Creatinine 0.65 L, Estim Creat Clear Calc 210.97, Est GFR (MDRD) Non-Af 124, BUN/Creatinine Ratio 18.1, Glucose 163 H, Calcium 9.2, Total Bilirubin 0.56, AST 25, ALT 23, Alkaline Phosphatase 71, Total Protein 6.8, Albumin 3.6, Globulin 3.2, Albumin/Globulin Ratio 1.2 03/15/25 11:29: POC Glucose 124 H Radiography Diagnostic Testing: Radiology Impression Echocardiogram 03/13/25 14:42 Interpretation Summary Normal LV size. The left ventricular ejection fraction is 45 %. Mild to moderate segmental systolic dysfunction (see wall motion). The rest of the wall segments are normal. Ordering Physician: Benton Almanzar Performed By: Alexy Armendariz RCS D/C Instructions Discharge Activity: Return to Normal Activity Return to work on: 03/19/25 May resume sexual activity in: No Restrictions Lifting Restrictions: Please do not lift more than 5 to 10 pounds for next 48 hrs DC O2, CPAP, BIPAP Needs Home O2 Discharge instructions: No DC home with Oxygen: No Meaningful Use Info Meaningful Use Meaningful Use Diagnoses (Choose all that apply): AMI AMI/Post PCI/Angioplasty Aspirin given w/in 24hrs of arrival?: Yes ASA at discharge?: Yes Antiplatelet Therapy at Discharge:: Yes Statins at discharge?: Yes Jigar/ARB at discharge?: Yes Beta Rhea at discharge?: Yes Done w/ Acute [place] measure.: Yes Documented LVEF (%): 45 Discharge Plan Admission Admit Date/Time: 03/13/25 14:39 Primary Reason for Your Visit: Chest pain Attending Provider: Yahaira Trevizo Primary Care Provider: Care Physician,No Primary Consulting Providers: Pawan Rico; Benton Almanzar Instructions Forms: Work Excuse Patient Instructions: Diabetes and Drinking Alcohol, Ischemic Cardiomyopathy, Diabetes and Heart Disease, Diabetes Food Shop Meals Prep, Diabetes Food Tips Ch, Diabetes Glossary, Diabetes Serving Portion Sizes, Diabetes Carbs Fats Protein, Diabetes- Know Your Goal Numbers Additional Instructions / Restrictions: 1. Please establish with a primary care physician and make an appointment for new patient visit as soon as possible 2. As discussed, it is imperative that you take your Plavix and aspirin without missing doses to prevent clotting off your stents Discharge Orders/Prescriptions Prescriptions: New atorvastatin 80 mg Tablet 80 mg PO QHS Qty: 30 2RF aspirin 81 mg Tablet,Chewable 81 mg PO BREAKFAST Qty: 0 0RF clopidogrel 75 mg Tablet 75 mg PO DAILY Qty: 30 11RF Jardiance 25 mg Tablet 25 mg PO DAILY Qty: 30 2RF metoprolol succinate 25 mg Tablet Extended Release 24 Hr 25 mg PO DAILY Qty: 30 0RF lisinopril 2.5 mg tablet 2.5 mg PO DAILY Qty: 30 2RF Continued BLUE CHEW Rx Instructions: PT STATES HE HAS A SCRIPT FOR BLUE CHEW AND IT'S LIKE A VIAGRA GUMMY diphenhydramine HCl [ZzzQuil] 25 mg capsule 25 mg PO DAILY PRN (Reason: sleep) Referrals / Follow Up: Pawan Rico MD [Med Staff - Active Staff] - Within 2 Weeks Care Physician,No Primary [Primary Care Provider] - Disposition Disposition (needs filled in before D/C Order can be placed): Home, Self Care Charges/Coding Visit Charges Inpatient E&M: 50667 Disch Hosp >30min
[2025-03-15 13:11] LABS: ACT Activated Clotting Time 250 sec (74-137)
--- NOTE | 2025-03-15 13:12 | CASEMGMT ---
Addendum entered by Aurea Dumont 03/15/25 13:20: Case ID# for PA [phone] Original Note: Patient has order for discharge. Patient is discharging on Jardiance and requires prior auth. YAEL ZARATE called and completed PA over the phone with approval. YAEL ZARATE also completed savings card for Jardiance. RN TESSA called and updated [facility] and copay is $10 with savings card. RN TESSA in to patient's room to discuss discharge and Jardiance savings. Patient voiced appreciation and denied further needs or concerns at discharge. Patient had no further questions.
[2025-03-15 14:29] VITALS: BP 129/74; PULSE 89; RESP 17; O2SAT 97
--- NOTE | 2025-03-26 09:47 | CL.D_ITS ---
Patient Name: MINDI SHARIF Study Date: 03/14/2025 Performing: Pawan Rico MD Ht: 72 inches 182.88 cm : 1985 Wt: 276.9 lbs 125.6 kg Age: 39 Gender: male BSA: 2.45 PROCEDURE(S) PERFORMED DC01-(74178)LHC/COR/LV IC12-(29407/C9600)ELISE W/WO PTCA, SINGLE CORONARY ARTERY IC12-(29915/C9600)ELISE W/WO PTCA, SINGLE CORONARY ARTERY CLINICAL PROFILE AND INDICATIONS Indications: Suspected CAD Heart Failure: None Stress/Imaging Stress/Image Study Performed: No Angina Classification Anginal Classification w/in 2 Weeks: CCS II CAD Presentations: Non-STEMI. Symptom onset Date/Time: 03/14/25 Time Not Available CONCLUSIONS Premature coronary disease with high-grade stenosis noted in the right coronary artery the proximal and mid left circumflex artery. RECOMMENDATIONS Referred for immediate PCI DESCRIPTION OF PROCEDURE The patient arrived to the procedure lab. The risks and benefits of the procedure as well as a full description of our services here and current unavailability of surgical backup were fully explained to the patient and/or their significant other prior to the catheterization. The Timeout was completed, verifying the correct patient and procedure. The patient's procedural site was prepped and draped in the usual fashion. Local anesthetic was given subcutaneously to right radial region with Lidocaine 2%. Using a modified Seldinger technique, arterial access was obtained via the right radial artery, a 6Fr sheath was inserted. Right Coronary Artery selective angiography was then performed in multiple views using a 5 Fr. 4.0 [place] catheter. Left Coronary Artery selective angiography was performed in multiple views using a 5 Fr. 4.0 [place] catheter. Left Ventriculography was performed in FRANCO projection using a 5 Fr. Pigtail catheter. CORONARY ANGIOGRAPHY DOMINANCE: Right Dominant LEFT HEART ASSESSMENT Left Ventricular Ejection Fraction: by LV Gram 45 % Lateral Hypokinesis - Moderate Depressed Left Ventricular systolic function LEFT MAIN: Angiographically normal LEFT ANTERIOR DESCENDING ARTERY: Mild luminal irregularities less than 30% DIAGONAL 1: Proximal - Mild luminal irregularities CIRCUMFLEX ARTERY: PROX CIRC: 95% stenosis % Stenosis MID CIRC: 70 % Stenosis OM 1: Mid - Mild luminal irregularities RIGHT CORONARY ARTERY: PROX RCA: 80 % Stenosis COMPLICATIONS No Complications PROCEDURE MEDICATIONS Fentanyl 50 mcg IV Versed 1 mg IV Versed 1 mg IV Oxygen: 2 L/min via nasal cannula Brilinta 180 mg PO @ 03/14/2025 09:21:38 Heparin given IA 03/14/2025 09:01:36 Heparin 8000 unit(s) IV 03/14/2025 09:18:05 Heparin 3000 unit(s) IV 03/14/2025 09:31:14 Heparin 2000 unit(s) IV 03/14/2025 09:54:29 Heparin 2000 unit(s) IV 03/14/2025 10:09:14 Nitro 200 mcg IC 03/14/2025 09:39:57 Nitro 200 mcg IC 03/14/2025 09:39:57 Nitro 200 mcg IC 03/14/2025 09:54:46 Verapamil 2.5mg, Ntg 100mcgs, 3000 units of Heparin given IA 03/14/2025 09:01:36 SUMMARY OF HEMODYNAMIC DATA Time AIR REST AO 102/68 (85) SA 09:07:11 LV 106/1, 9 09:16:43 LV 108/3, 13 09:17:29 LVp 108/4, 14 09:17:34 AOp 117/75 (94) 09:17:41 AO 115/79 (96) 09:35:27 AO 120/86 (102) 09:43:05 AIR REST 09:43:21 AIR REST AO 110/78 (94) 10:04:18 AO 110/79 (95) 10:15:15 ECG 10:15:22 Signed By Pawan Rico MD On 03/14/2025 10:19:53 Pawan Rico MD
--- NOTE | 2025-03-26 09:47 | CL.I_ITS ---
Patient Name: MINDI SHARIF Study Date: 03/14/2025 Performing: Jacquelyn Orozco MD Ht: 72 inches 182.88 cm : 1985 Wt: 276.9 lbs 125.6 kg Age: 39 Gender: male BSA: 2.45 PROCEDURE(S) PERFORMED IC12-(35783/C9600)ELISE W/WO PTCA, SINGLE CORONARY ARTERY IC12-(22197/C9600)ELISE W/WO PTCA, SINGLE CORONARY ARTERY CLINICAL PROFILE AND CO-MORBIDITIES Indications: Suspected CAD Heart Failure: None Stress/Imaging Stress/Image Study Performed: No Angina Classification Anginal Classification w/in 2 Weeks: CCS II CAD Presentations: Non-STEMI. Symptom onset Date/Time: 03/14/25 Time Not Available CONCLUSIONS Successful PTCA/ELISE Prox LCX using David Green 3.5x18 mm Successful ELISE distal LCX using Davdi Green 3.0x12 mm Successful ELISE Mid RCA using David Green 3.5x26 mm RECOMMENDATIONS ASA Indefinitley P2Y12 inhibitors for atleast 6 months DESCRIPTION OF PROCEDURE The patient arrived to the procedure lab. The risks and benefits of the procedure as well as a full description of our services here and current unavailability of surgical backup were fully explained to the patient and/or their significant other prior to the catheterization. The Timeout was completed, verifying the correct patient and procedure. The patient's procedural site was prepped and draped in the usual fashion. Local anesthetic was given subcutaneously to right radial region with Lidocaine 2% Using a modified Seldinger technique,arterial access was obtained via the right radial artery, a 6Fr sheath was inserted. Right Coronary Artery selective angiography was then performed in multiple views using a 5 Fr. 4.0 [place] catheter. Left Coronary Artery selective angiography was performed in multiple views using a 5 Fr. 4.0 [place] catheter. Left Ventriculography was performed in FRANCO projection using a 5 Fr. Pigtail catheter. xb3 Guide catheter was inserted and engaged into the LCA. runthrough Guide wire was advanced to the Circumflex. 2.5x15 emerge Balloon catheter was advanced across lesion in the circumflex, proximal. PTCA balloon inflated at 6 atms for 20 secs. PTCA balloon inflated at 6 atms for 12 secs. 3.0x12 david Drug Eluting stent was advanced across the lesion in the circumflex, distal. Angiogram performed post stent deployment. 3.0x12 NC emerge Balloon catheter was inserted post stent. 3.5x18 david Drug Eluting stent was advanced across the lesion in the circumflex, proximal. Angiogram performed post stent deployment. 3.0x15 nc emerge Balloon catheter was inserted post stent. Angiogram performed post stent deployment. Guide catheter was exchanged for a 6f jr4 6f jr4 Guide catheter was inserted and engaged into the RCA. runthrough Guide wire was advanced to the RCA. 3.5x26 Drug Eluting stent was advanced across the lesion in the graft to the RCA. Angiogram performed post stent deployment. 3.5x15 nc emerge Balloon catheter was inserted post stent. Angiogram performed post balloon dilatation. The arterial sheath was pulled and a TR Band was applied for hemostasis with 13cc of air. INTERVENTION INFORMATION LESION SITE: Circumflex (Proximal) Lesion Complexity: High/C, thrombus present: Yes, lesion length: 16 mm, culprit lesion: Yes Pre Stenosis: 99 % Pre intervention GEM flow: 3 PROCEDURE: Drug Eluting Stent with pre and post dilatation Post Stenosis: 0 % Post intervention GEM flow: 3 Lesion Devices: Terumo .014 180cm Runthrough Extra Floppy straight Cordis 6 Fr XB3.0 100cm Guide Catheter [employer] EMERGE MR 2.50x15 BALLOON Medtronic 3.5 x 18 DAVID FRONTIER ELISE [employer] [place] EMERGE MR 3.50x15 BALLOON LESION SITE: Circumflex (Distal) Lesion Complexity: Non-High/Non-C, culprit lesion: No, lesion length: 10 mm Pre Stenosis: 70 % Pre intervention GEM flow: 3 PROCEDURE: Drug Eluting Stent with post dilatation Post Stenosis: 0 % Post intervention GEM flow: 3 Lesion Devices: Terumo .014 180cm Runthrough Extra Floppy straight Cordis 6 Fr XB3.0 100cm Guide Catheter [employer] 3.0 x 12 DAVID FRONTIER ELISE [employer] [place] EMERGE MR 3.00x12 BALLOON LESION SITE: RCA (Mid) Lesion Complexity: High/C, culprit lesion: No, lesion length: 24 mm Pre Stenosis: 95 % Pre intervention GEM flow: 3 PROCEDURE: Drug Eluting Stent with post dilatation 0 % Post intervention GEM flow: 3 Lesion Devices: Terumo .014 180cm Runthrough Extra Floppy straight Cordis 6 Fr JR4 100cm Guide Catheter [employer] 3.5 x 26 DAVID FRONTIER ELISE [employer] [place] EMERGE MR 3.50x15 BALLOON COMPLICATIONS No Complications PROCEDURE MEDICATIONS Fentanyl 50 mcg IV Versed 1 mg IV Versed 1 mg IV Oxygen: 2 L/min via nasal cannula Brilinta 180 mg PO @ 03/14/2025 09:21:38 Heparin given IA 03/14/2025 09:01:36 Heparin 8000 unit(s) IV 03/14/2025 09:18:05 Heparin 3000 unit(s) IV 03/14/2025 09:31:14 Heparin 2000 unit(s) IV 03/14/2025 09:54:29 Heparin 2000 unit(s) IV 03/14/2025 10:09:14 Nitro 200 mcg IC 03/14/2025 09:39:57 Nitro 200 mcg IC 03/14/2025 09:39:57 Nitro 200 mcg IC 03/14/2025 09:54:46 Verapamil 2.5mg, Ntg 100mcgs, 3000 units of Heparin given IA 03/14/2025 09:01:36 SUMMARY OF HEMODYNAMIC DATA Time AIR REST ECG 08:50:06 AO 102/68 (85) SA 09:07:11 LV 106/1, 9 09:16:43 LV 108/3, 13 09:17:29 LVp 108/4, 14 09:17:34 AOp 117/75 (94) 09:17:41 AO 115/79 (96) 09:35:27 AO 120/86 (102) 09:43:05 AO 110/78 (94) 10:04:18 AO 110/79 (95) 10:15:15 10:32:09 Signed By Jacquelyn Orozco MD On 03/14/2025 10:33:22 Jacquelyn Orozco MD
== END 2025-03-15 14:49 | disposition home or self-care (01) | DRG 322 ==
LOC: ED 13:33 → PCU 14:51
PROVIDERS: Internal Medicine Cardiovascular Disease; Admitting Provider Hospitalist; Emergency Provider Emergency Medicine; Visit Provider Internal Medicine
DX: I21.4 Non-ST elevation (NSTEMI) myocardial infarction (principal); E11.9 Type 2 diabetes mellitus without complications; I10 Essential (primary) hypertension; E66.812 Obesity, class 2; L40.0 Psoriasis vulgaris; I25.5 Ischemic cardiomyopathy; I25.10 Atherosclerotic heart disease of native coronary artery without angina pectoris; E78.1 Pure hyperglyceridemia; Z68.37 Body mass index [BMI] 37.0-37.9, adult; Z79.82 Long term (current) use of aspirin; Z95.5 Presence of coronary angioplasty implant and graft; Z82.49 Family history of ischemic heart disease and other diseases of the circulatory system
CPT/HCPCS: 36415; 71045; 71275; 80048; 80053; 80061; 80076; 82962; 83036; 84443; 84484; 85025; 85027; 85347; 85379; 85610; 85730; 92928; 93005; 93306; 93458; 94668; 97802; 99152; 99153; 99285; Q9957; Q9967; A4216; C1725; C1769; C1874; C1887; C1894; C8929; C9600

== ENCOUNTER → 2025-04-05 | Outpatient (CLI) | payer BC, SELFPAY ==
[2025-04-05 17:07] LABS: Creatinine, Urine (random) 97.30 mg/dL (39.00-259.00); Microalbumin,Random Urine < 12.0 mg/L (<20 mg/L)
== END | disposition home or self-care (01) ==
PROVIDERS: Referring Provider Physician Assistant Medical; Visit Provider Physician Assistant Medical
DX: E11.9 Type 2 diabetes mellitus without complications (principal)
CPT/HCPCS: 82043; 82570